=== PATIENT | female | born 1990 | race African-American/Black ===

== ENCOUNTER 2017-11-22 18:55 | Emergency (ER) | payer OTHER ==
[2017-11-22] MEDS ORDERED: METHYLPREDNISOLONE 125 MG INJ ONE (20:38)
[2017-11-22] MEDS ORDERED: DIPHENHYDRAMINE 50 MG/ML VIAL ONE (20:38)
[2017-11-22] MEDS ORDERED: NA CHLORIDE 0.9% 1,000 ML ONE (20:39)
[2017-11-22] MEDS ORDERED: FAMOTIDINE 20 MG/2 ML VIAL IV ONE (20:39)
[2017-11-22 21:04] LABS: Absolute Lymphocytes (CBC) 1.5 K/uL (0.7-4.9); Absolute Monocytes 0.7 K/uL (0.1-1.3); Absolute Neutrophil 12.4 K/uL (1.8-8.0); Basophils % 0.4 % (0-1.3); Eosinophils % 1.2 % (0-4.4); Hematocrit 37.2 % (36.0-45.0); MCH 28.5 pg (27.0-35.0); MCV 86.3 fL (80-100); MPV 9.1 fL (7.6-11.3); Monocytes % 4.7 % (3.3-12.3); RBC Red Blood Cell Count 4.31 M/uL (3.86-4.86)
[2017-11-22 21:14] LABS: Protime INR 1.08
[2017-11-22 21:18] LABS: Bicarbonate 26 mEq/L (21-31); Glucose Level 108 mg/dL (65-120); Lipase 13 U/L (22-51); Potassium 3.9 mEq/L (3.6-5.0); Sodium Level 138 mEq/L (135-145)
[2017-11-22 21:24] LABS: ALT/SGPT 15 IU/L (10-60); AST/SGOT 18 IU/L (10-42); Alkaline Phosphatase 67 IU/L (42-121); BUN Blood Urea Nitrogen 8 mg/dL (6-20); Bilirubin Direct 0.1 mg/dL (0-0.2); Bilirubin Total 0.4 mg/dL (0.3-1.2); Creatine Phosphokinase 99 IU/L (22-269); Magnesium 1.8 mg/dL (1.8-2.5); Protein, Total 7.7 g/dL (6.0-8.3)
[2017-11-22 21:26] LABS: CKMB Creatine Kinase MB 1.3 ng/ml (0.3-4.0)
[2017-11-22 21:47] LABS: Urine Blood NEGATIVE (NEG); Urine Glucose NEGATIVE (NEG); Urine Protein NEGATIVE (NEG); Urine pH 6.5 (5.0-7.0)
--- NOTE | 2017-11-22 22:04 | RAD REPORT ---
EXAM DESCRIPTION: CT - Chest For Pe Angio - 11/22/2017 9:42 pm CLINICAL HISTORY: Chest pain, cough and shortness of breath COMPARISON: None. TECHNIQUE: Dynamically enhanced axial 3 mm thick images of the chest were obtained during administra tion of <100> mL Isovue 370 IV contrast. Coronal and oblique reconstruction images were generated and reviewed. Exam utilizes a protocol for optimal evaluation of pulmonary arterial tree. All CT scans are performed using dose optimization technique as appropriate and may include automated exposure control or mA/KV adjustment according to patient size. FINDINGS: A pulmonary embolus is not seen. A thoracic aortic aneurysm is not noted. A pleural effusion is not seen. A pericardial effusion is not seen. A lung consolidation is not present. Inferior slices demonstrate soft tissue structure within the right para-aortic region of the upper ab domen IMPRESSION: Negative for a pulmonary embolism. Inferior slices demonstrate soft tissue structure within the right periaortic region of the upper abd omen. This is incompletely evaluated on this exam. Most likely this represents normal diaphragmatic c emil. However as lymphadenopathy can have this appearance it is recommended that the patient have a CT abdomen to fully evaluate this.
--- NOTE | 2017-11-22 23:35 | ER ---
Nurse's Notes [facility] Name: Marya Sanchez Age: 27 yrs Sex: Female : 1990 Arrival Date: 11/22/2017 Time: 18:55 Bed 30 Private MD: Diagnosis: Dyspnea;Obesity, unspecified;Cystitis;Chest pain, unspecified;Elevated white blood cell count Presentation: 11/22 19:27 Presenting complaint: Patient states: Cough for 1 week and chest pain for 2 days. Seen aj at urgent care today and referred for lab and xray, then sent to ER after no cause found. 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 Transition of care: patient was not received from another setting of care. Onset of symptoms was November 15, 2017. Initial Sepsis Screen: Does the patient meet any 2 criteria? No. Patient's initial sepsis screen is negative. Does the patient have a suspected source of infection? No. Patient's initial sepsis screen is negative. Care prior to arrival: None. 19:27 Method Of Arrival: Ambulatory aj 19:27 Acuity: JUAN 4 aj Triage Assessment: 19:30 General: Appears in no apparent distress. uncomfortable, Behavior is calm, cooperative, aj appropriate for age. Pain: Complains of pain in left scapular area, right scapular area, left subscapular area, right subscapular area and thoracic area Pain currently is 8 out of 10 on a pain scale. Neuro: Level of Consciousness is awake, alert, obeys commands, Oriented to person, place, time, situation. Respiratory: Reports shortness of breath cough that is pain with cough Airway is patent Respiratory effort is even, unlabored, Respiratory pattern is regular, symmetrical, Onset: The symptoms/episode began/occurred gradually, the patient has mild shortness of breath. Derm: Skin is intact, is healthy with good turgor, Skin is pink, warm \T\ dry. normal. 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 - Social history:: Smoking status: Patient uses tobacco products, smokes one-half pack cigarettes per day. - Family history:: not pertinent. Screenin:05 Abuse screen: Denies threats or abuse. Denies injuries from another. Nutritional kr2 screening: No deficits noted. Tuberculosis screening: No symptoms or risk factors identified. Fall Risk None identified. Assessment: 20:40 Cardiovascular: Rhythm is sinus rhythm. Respiratory: Reports shortness of breath at kr2 rest cough that is non-productive, persistent Airway is patent Respiratory effort is even, unlabored, Respiratory pattern is regular, symmetrical, Breath sounds are clear bilaterally. 20:40 General: Appears in no apparent distress. comfortable, well groomed, well developed, kr2 well nourished, Behavior is calm, cooperative, appropriate for age. Pain: Complains of pain in chest Pain radiates to left scapular area, right scapular area and thoracic area Pain currently is 7 out of 10 on a pain scale. Quality of pain is described as sharp, stabbing, Is continuous, Alleviated by nothing. Aggravated by increased activity. Neuro: Level of Consciousness is awake, alert, obeys commands, Oriented to person, place, time, situation. GI: Abdomen is flat, non-distended. : Urine is clear. EENT: Nares with drainage noted bilaterally Oral mucosa is moist. Derm: Skin is intact, is healthy with good turgor, Skin is pink, warm \T\ dry. Musculoskeletal: Circulation, motion, and sensation intact. 21:45 Reassessment: Patient appears in no apparent distress at this time. Patient and/or kr2 family updated on plan of care and expected duration. Pain level reassessed. Patient is alert, oriented x 3, equal unlabored respirations, skin warm/dry/pink. 22:30 Reassessment: Patient appears in no apparent distress at this time. Patient and/or kr2 family updated on plan of care and expected duration. Pain level reassessed. Patient is alert, oriented x 3, equal unlabored respirations, skin warm/dry/pink. Patient states feeling better. 23:30 Reassessment: Patient appears in no apparent distress at this time. Patient and/or kr2 family updated on plan of care and expected duration. Pain level reassessed. Patient is alert, oriented x 3, equal unlabored respirations, skin warm/dry/pink. Patient denies pain at this time. Patient states feeling better. Patient states symptoms have improved. 11/23 00:39 Reassessment: Patient appears in no apparent distress at this time. Rocephin given IM kr2 due to IV not flushing. Vital Signs: 11/22 19:30 BP 114 / 91; Pulse 95; Resp 22; Temp 98.6; Pulse Ox 100% on R/A; Weight 113.4 kg; aj Height 5 ft. 3 in. (160.02 cm); Pain 8/10; 21:00 BP 118 / 78; Pulse 88; Resp 17; Pulse Ox 100% on R/A; kr2 22:00 BP 115 / 78; Pulse 84; Resp 17; Pulse Ox 100% on R/A; kr2 23:00 BP 112 / 62; Pulse 80; Resp 18; Pulse Ox 100% on R/A; kr2 11/23 00:00 BP 115 / 88; Pulse 95; Resp 18; Pulse Ox 100% on R/A; kr2 11/22 19:30 Body Mass Index 44.29 (113.40 kg, 160.02 cm) ED Course: 11/22 18:55 Patient arrived in ED. as 19:29 Triage completed. aj 19:30 Arm band placed on left wrist. Patient placed in an exam room. aj 19:46 Ronaldo Seth MD is Attending Physician. [facility] 20:16 Fina Mittal, YOBANI is Primary Nurse. kr2 20:45 Patient has correct armband on for positive identification. Bed in low position. Call kr2 light in reach. Side rails up X2. esthetician on. Pulse ox on. NIBP on. Door closed. Warm blanket given. Head of bed elevated. 20:50 Radiology exam delayed due to lab results not completed at this time. (BUN/Creatinine). vm2 20:50 Inserted saline lock: 22 gauge in left antecubital area, using aseptic technique. Blood kr2 collected. 21:18 Urine collected: clean catch specimen, cloudy, kathleen colored. kr2 21:[address] via wheelchair. jg1 21:43 CT Chest For PE Angio In Process Unspecified. EDMS 21:45 CT completed. Patient moved back from CT. jg1 22:[address] via wheelchair. jg1 23:08 CT Abd/Pelvis - Without Cont In Process Unspecified. EDMS 11/23 00:39 No provider procedures requiring assistance completed. IV discontinued, intact, kr2 bleeding controlled, No redness/swelling at site. Pressure dressing applied. Administered Medications: 11/22 21:03 Drug: NS 0.9% 1000 ml Route: IV; Rate: 1 bolus; Site: left antecubital; kr2 22:00 Follow up: Response: No adverse reaction; IV Status: Completed infusion kr2 21:03 Drug: Pepcid 40 mg Route: IVP; Site: left antecubital; kr2 11/23 00:38 Follow up: Response: No adverse reaction 2 11/22 21:03 Drug: Benadryl 50 mg Route: IVP; Site: left antecubital; kr2 11/23 00:37 Follow up: Response: No adverse reaction [facility] 11/22 21:04 Drug: SOLU-Medrol 125 mg Route: IVP; Site: left antecubital; kr2 11/23 00:38 Follow up: Response: No adverse reaction [facility] 11/22 23:36 CANCELLED (Duplicate Order): Zithromax 500 mg PO once [facility] 11/23 00:15 Drug: Rocephin (cefTRIAXone) 1 grams Route: IM; Site: left gluteus; kr2 00:37 Follow up: Response: No adverse reaction 2 00:19 CANCELLED (route change): Rocephin - (cefTRIAXone) 1 grams IVPB once over 30 mins; (mix kr2 in 50 mL NS) 00:19 Drug: LevOfloxacin 500 mg Route: PO; kr2 00:37 Follow up: Response: Medication administered at discharge. kr2 Outcome: 11/22 23:35 Discharge ordered by . [facility] 11/23 00:40 Discharged to home ambulatory. kr2 Condition: good Discharge instructions given to patient, Instructed on discharge instructions, follow up and referral plans. medication usage, Demonstrated understanding of instructions, follow-up care, medications, Prescriptions given X 3. 00:40 Patient left the ED. kr2 Addendum: 11/26/2017 07:34 Addendum: Culture Results: Positive urine culture. No further action required. Bacteria i w sensitive to prescribed antibiotic. Signatures: Dispatcher [employer] EDMS Paola Philip RN RN aj Anderson, Corey, MD MD cha Garcia, Jessica jg1 Martinez, Amelia as Williams, Irene, RN RN [facility]midt, Meghan 2 Fina Mittal RN RN kr2 Corrections: (The following items were deleted from the chart) 11/22 22:57 20:40 Respiratory: Airway is patent Respiratory effort is even, unlabored, Respiratory kr2 pattern is regular, symmetrical, Breath sounds are clear bilaterally. kr2 22:59 20:40 Cardiovascular: Rhythm is sinus rhythm kr2 kr2
--- NOTE | 2017-11-22 23:36 | EDPHYS ---
Physician Documentation [facility] Name: Marya Sanchez Age: 27 yrs Sex: Female : 1990 Arrival Date: 11/22/2017 Time: 18:55 Bed 30 Private MD: ED Physician Ronaldo Seth HPI: 11/22 20:26 This 27 yrs old Black Female presents to ER via Ambulatory with complaints of Shortness rocky Of Breath, Chest Pain. 20:26 The patient has shortness of breath at rest. Onset: The symptoms/episode began/occurred rocky 2 day(s) ago. Duration: The symptoms are continuous, and are unchanged since they started. The patient's shortness of breath has no apparent modifying factors. Associated signs and symptoms: The patient has no apparent associated signs or symptoms. Severity of symptoms: At their worst the symptoms were mild in the emergency department the symptoms are unchanged. The patient has not experienced similar symptoms in the past. 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 - Social history:: Smoking status: Patient uses tobacco products, smokes one-half pack cigarettes per day. - Family history:: not pertinent. ROS: 20:26 Constitutional: Negative for fever, chills, and weight loss, Eyes: Negative for injury, rocky pain, redness, and discharge, ENT: Negative for injury, pain, and discharge, Neck: Negative for injury, pain, and swelling, Cardiovascular: Negative for chest pain, palpitations, and edema, Abdomen/GI: Negative for abdominal pain, nausea, vomiting, diarrhea, and constipation, Back: Negative for injury and pain, : Negative for injury, bleeding, discharge, and swelling, MS/Extremity: Negative for injury and deformity, Skin: Negative for injury, rash, and discoloration, Neuro: Negative for headache, weakness, numbness, tingling, and seizure, Psych: Negative for depression, anxiety, suicide ideation, homicidal ideation, and hallucinations, Allergy/Immunology: Negative for hives, rash, and allergies, Endocrine: Negative for neck swelling, polydipsia, polyuria, polyphagia, and marked weight changes, Hematologic/Lymphatic: Negative for swollen nodes, abnormal bleeding, and unusual bruising. 20:26 Respiratory: Positive for shortness of breath, at rest. Exam: 20:26 Constitutional: This is a well developed, well nourished patient who is awake, alert, rocky and in no acute distress. Head/Face: Normocephalic, atraumatic. Eyes: Pupils equal round and reactive to light, extra-ocular motions intact. Lids and lashes normal. Conjunctiva and sclera are non-icteric and not injected. Cornea within normal limits. Periorbital areas with no swelling, redness, or edema. ENT: Nares patent. No nasal discharge, no septal abnormalities noted. Tympanic membranes are normal and external auditory canals are clear. Oropharynx with no redness, swelling, or masses, exudates, or evidence of obstruction, uvula midline. Mucous membranes moist. Neck: Trachea midline, no thyromegaly or masses palpated, and no cervical lymphadenopathy. Supple, full range of motion without nuchal rigidity, or vertebral point tenderness. No Meningismus. Chest/axilla: Normal chest wall appearance and motion. Nontender with no deformity. No lesions are appreciated. Cardiovascular: Regular rate and rhythm with a normal S1 and S2. No gallops, murmurs, or rubs. Normal PMI, no JVD. No pulse deficits. Respiratory: Lungs have equal breath sounds bilaterally, clear to auscultation and percussion. No rales, rhonchi or wheezes noted. No increased work of breathing, no retractions or nasal flaring. Abdomen/GI: Soft, non-tender, with normal bowel sounds. No distension or tympany. No guarding or rebound. No evidence of tenderness throughout. Back: No spinal tenderness. No costovertebral tenderness. Full range of motion. Skin: Warm, dry with normal turgor. Normal color with no rashes, no lesions, and no evidence of cellulitis. MS/ Extremity: Pulses equal, no cyanosis. Neurovascular intact. Full, normal range of motion. Neuro: Awake and alert, GCS 15, oriented to person, place, time, and situation. Cranial nerves II-XII grossly intact. Motor strength 5/5 in all extremities. Sensory grossly intact. Cerebellar exam normal. Normal gait. Psych: Awake, alert, with orientation to person, place and time. Behavior, mood, and affect are within normal limits. 20:26 Musculoskeletal/extremity: ROM: no acute changes, intact in all extremities, full active range of motion, full passive range of motion, Circulation is intact in all extremities. Sensation intact. Compartment Syndrome exam of affected extremity: is normal. Joints: All joints appear normal with full range of motion. DVT Exam: No signs of deep vein thrombosis. no pain, no swelling, no tenderness, negative Homans' sign noted on exam, no appreciated bluish discoloration, no erythema, no increased warmth, Calves: are non-tender, have equal circumference. Vital Signs: 19:30 BP 114 / 91; Pulse 95; Resp 22; Temp 98.6; Pulse Ox 100% on R/A; Weight 113.4 kg; aj Height 5 ft. 3 in. (160.02 cm); Pain 8/10; 21:00 BP 118 / 78; Pulse 88; Resp 17; Pulse Ox 100% on R/A; kr2 22:00 BP 115 / 78; Pulse 84; Resp 17; Pulse Ox 100% on R/A; kr2 23:00 BP 112 / 62; Pulse 80; Resp 18; Pulse Ox 100% on R/A; kr2 11/23 00:00 BP 115 / 88; Pulse 95; Resp 18; Pulse Ox 100% on R/A; kr2 11/22 19:30 Body Mass Index 44.29 (113.40 kg, 160.02 cm) aj MDM: 11/22 19:46 Patient medically screened. [facility] 20:26 Data reviewed: vital signs, nurses notes, lab test result(s), EKG, radiologic studies, [facility] CT scan, plain films. 11/22 20:25 Order name: Basic Metabolic Panel; Complete Time: 22:49 [facility] 11/22 20:25 Order name: BNP; Complete Time: 22:49 [facility] 11/22 20:25 Order name: CBC with Diff; Complete Time: 22:49 [facility] 11/22 20:25 Order name: Ckmb; Complete Time: 22:49 [facility] 11/22 20:25 Order name: CPK; Complete Time: 22:49 [facility] 11/22 20:25 Order name: LFT's; Complete Time: 22:49 [facility] 11/22 20:25 Order name: Magnesium; Complete Time: 22:49 [facility] 11/22 20:25 Order name: PT-INR; Complete Time: 22:49 [facility] 11/22 20:25 Order name: Ptt, Activated; Complete Time: 22:49 [facility] 11/22 20:25 Order name: Troponin (emerg Dept Use Only); Complete Time: 22:49 [facility] 11/22 20:25 Order name: Lipase; Complete Time: 22:49 [facility] 11/22 21:29 Order name: Urine Dipstick--Ancillary (enter results); Complete Time: 22:49 em 11/22 21:29 Order name: Urine --Ancillary (enter results); Complete Time: 22:49 [facility] 11/22 22:52 Order name: Urine Culture [facility] 11/22 20:25 Order name: Urine Test (obtain specimen); Complete Time: 21:26 [facility] 11/22 20:25 Order name: EKG; Complete Time: 20:26 [facility] 11/22 20:25 Order name: Cardiac monitoring; Complete Time: 21:02 [facility] 11/22 20:25 Order name: EKG - Nurse/Tech; Complete Time: 21:02 [facility] 11/22 20:25 Order name: IV Saline Lock; Complete Time: 21:02 [facility] 11/22 20:25 Order name: CT Chest For PE Angio; Complete Time: 22:49 [facility] 11/22 22:51 Order name: CT Abd/Pelvis - Without Cont 11/22 20:25 Order name: Labs collected and sent; Complete Time: 21:02 [facility] 11/22 20:25 Order name: O2 Per Protocol; Complete Time: 21:02 [facility] 11/22 20:25 Order name: O2 Sat Monitoring; Complete Time: 21:02 [facility] 11/22 20:25 Order name: Urine Dipstick-Ancillary (obtain specimen); Complete Time: 21:27 [facility] Administered Medications: 21:03 Drug: NS 0.9% 1000 ml Route: IV; Rate: 1 bolus; Site: left antecubital; kr2 22:00 Follow up: Response: No adverse reaction; IV Status: Completed infusion :03 Drug: Pepcid 40 mg Route: IVP; Site: left antecubital; kr2 11/23 00:38 Follow up: Response: No adverse reaction 2 11/22 21:03 Drug: Benadryl 50 mg Route: IVP; Site: left antecubital; kr2 11/23 00:37 Follow up: Response: No adverse reaction kr2 11/22 21:04 Drug: SOLU-Medrol 125 mg Route: IVP; Site: left antecubital; kr2 11/23 00:38 Follow up: Response: No adverse reaction 2 11/22 23:36 CANCELLED (Duplicate Order): Zithromax 500 mg PO once [facility] 11/23 00:15 Drug: Rocephin (cefTRIAXone) 1 grams Route: IM; Site: left gluteus; kr2 00:37 Follow up: Response: No adverse reaction kr2 00:19 CANCELLED (route change): Rocephin - (cefTRIAXone) 1 grams IVPB once over 30 mins; (mix kr2 in 50 mL NS) 00:19 Drug: LevOfloxacin 500 mg Route: PO; kr2 00:37 Follow up: Response: Medication administered at discharge. kr2 Disposition: 11/22/17 23:35 Discharged to Home. Impression: Dyspnea, Obesity, unspecified, Cystitis, Chest pain, unspecified, Elevated white blood cell count. - Condition is Stable. - Discharge Instructions: Nonspecific Chest Pain, Dysuria, Obesity, Nonspecific Chest Pain, [id number], Aspirin and Your Heart, Obesity, [id number]. - Prescriptions for Pepcid 20 mg Oral Tablet - take 1 tablet by ORAL route every 12 hours for 10 days; 20 tablet. Levaquin 500 mg Oral Tablet - take 1 tablet by ORAL route once daily for 6 days; 6 tablet. Motrin IB 200 mg Oral Tablet - take 2 tablet by ORAL route every 6 hours As needed as needed with food; 30 tablet. - Medication Reconciliation Form, Thank You Letter, Antibiotic Education, Prescription Opioid Use, Work release form form. - Follow up: Private Physician; When: 2 - 3 days; Reason: Recheck today's complaints, Continuance of care, Re-evaluation by your physician. - Problem is new. - Symptoms have improved. Signatures: Dispatcher [employer] Paola Tadeo, Ronaldo Deluna RN, MD MD cha Reaves, Karey RN RN kr2 Corrections: (The following items were deleted from the chart) 11/22 20:58 20:26 Chest Single View+[email or web address].[email or web address] ordered. EDMS EDMS 23:36 23:34 Zithromax 500 mg PO once ordered. rocky rocky 11/23 00:19 11/22 22:52 Rocephin - (cefTRIAXone) 1 grams IVPB once over 30 mins; (mix in 50 mL NS) kr2 ordered. rocky
[2017-11-22] MEDS ORDERED: CEFTRIAXONE/SWI 1gm 1 GM/10 ML SYR ONE (23:52)
[2017-11-22] MEDS ORDERED: levoFLOXacin 500 MG TAB ONE (23:52)
[2017-11-22] MEDS ORDERED: CEFTRIAXONE 1000 MG/VIAL ONE (23:59)
[2017-11-22] MEDS ORDERED: LIDOCAINE 1% MPF 5 ML VIAL ONE (23:59)
--- NOTE | 2017-11-23 08:43 | RAD REPORT ---
EXAM DESCRIPTION: CT - Abdomen Pelvis Wo Contrast - 11/23/2017 6:43 am CLINICAL HISTORY: Abdominal pain. Cough, chest pain COMPARISON: CT chest 11/22/2017 TECHNIQUE: CT imaging of the abdomen and pelvis was performed without contrast. Solid organ, bowel a nd vascular assessment is limited due to lack of IV and oral contrast. All CT scans are performed using dose optimization technique as appropriate and may include automated exposure control or mA/KV adjustment according to patient size. FINDINGS: The lower lung adkins are clear. The liver, spleen, pancreas, adrenal glands and kidneys are within normal limits for a limited non-co ntrast examination.Excretory contrast noted in the system from CT recently performed. No bowel obstruction, free air, free fluid or abscess. The appendix is normal. The osseous structures are within normal limits. IMPRESSION: No acute intra-abdominal or pelvic findings. A limited non-contrast examination was performed as detailed.
--- NOTE | 2017-11-23 15:42 | EKG ---
Test Date: 2017-11-22 Test Time: 20:54:16 Assistant Softball Coach: CONNER MEASUREMENT RESULTS: Intervals: Rate: 78 [place]: 156 QRSD: 80 QT: 386 QTc: 440 [place]: P: 60 [place]: 156 QRS: 74 T: 44 INTERPRETIVE STATEMENTS: Normal sinus rhythm Normal ECG Compared to ECG 06/19/2014 16:54:39 Sinus arrhythmia no longer present Electronically Signed On 11-23-17 15:37:58 CDT by Chris Moreno
== END 2017-11-23 00:40 | disposition home or self-care (01) ==
LOC: ER 18:55
DX: R07.9 Chest pain, unspecified (principal); N30.90 Cystitis, unspecified without hematuria; D72.829 Elevated white blood cell count, unspecified; E66.9 Obesity, unspecified; I10 Essential (primary) hypertension; F17.210 Nicotine dependence, cigarettes, uncomplicated; Z91.013 Allergy to seafood
CPT/HCPCS: 36415; 71275; 74176; 80048; 80076; 81003; 81025; 82550; 82553; 83690; 83735; 83880; 84484; 85025; 85610; 85730; 87077; 87086; 87088; 87186; 93005; 96361; 96372; 96374; 96375; 99285; J0696; J2930; J7030; Q9967

== ENCOUNTER 2019-09-03 08:28 | Emergency (ER) | payer OTHER, SELFPAY ==
--- OUTSIDE RECORDS SUMMARY | 2019-09-03 08:30 | XMS REPORT ---
:1990 Author Organization [employer] Care Team Providers Name Role Phone Lillie Pan Provider Role Unavailable Allergies No Known Allergies Problems Problem Type Condition Code Onset Dates Condition Status Problem Hoarseness of voice R49.0 Active Problem Mass of throat 784.2 Active Problem Primary insomnia 307.42 Active Problem Insomnia, unspecified type G47.00 Active Problem Seasonal allergies 477.9 Active Problem Hives of unknown origin L50.9 Active Problem Depression with anxiety F41.8 Active Problem Seasonal allergies J30.2 Active Problem Depression with anxiety 300.4 Active Problem Hives 708.9 Active Problem History of supraventricular Z86.79 Active tachycardia Problem Asthma, unspecified asthma J45.909 Active severity, unspecified whether complicated, unspecified whether persistent Problem Anxiety F41.9 Active Problem History of pneumonia Z87.01 Active Medications No Known Medications Results No Known Results Summary Purpose [facility]
--- OUTSIDE RECORDS SUMMARY | 2019-09-03 08:30 | XMS REPORT ---
:1990 Author Organization eClinicalWorks Care Team Providers Name Role Phone Mayorga, Na Provider Role Unavailable Allergies, Adverse Reactions, Alerts Substance Reaction Event Type seafood Info Not Available Non Drug Allergy Problems Problem Type Condition Code Onset Dates [...] anxiety 300.4 Active Problem Hives 708.9 Active Assessment Acute non-recurrent maxillary J01.00 Active sinusitis Assessment Hoarseness of voice R49.0 Active Assessment Depression with anxiety F41.8 Active Assessment Mass of throat R22.1 Active Problem History of supraventricular Z86.79 Active tachycardia Problem Asthma, unspecified asthma J45.909 Active severity, unspecified whether complicated, unspecified whether persistent Assessment Seasonal allergic rhinitis due to J30.1 Active pollen Problem Anxiety F41.9 Active Problem History of pneumonia Z87.01 Active Medications Medication Code Code Instructions Start End Status Dosage System Date Date Lexapro [facility] 96041968305 10 MG Orally Mar 27, Active 1 tablet Once a day 2017 Cetirizine HCl [facility] 44380514010 10 MG Orally Active 1 tablet Once a day Estarylla [facility] [address]-71 Active not defined Flonase [facility] 62984843065 50 MCG/ACT Active 2 spray Nasally Once a in each day nostril Trazodone HCl [facility] 96903506395 50 MG Orally Inactive 1 tablet Once a day at bedtime as needed Augmentin [facility] 11791578576 875-125 MG Sept Active 1 tablet Orally every 12 07, hrs 2017 ZyrTEC [facility] 70094081329 Active not defined Montelukast [facility] 91169175055 10 MG Orally Active 1 tablet Sodium Once a day in the evening Benadryl [facility] 93810293893 25 MG Orally Active 1 tablet Allergy every 8 hrs as needed PredniSONE [facility] 07891184694 20 MG Orally Mar 27, Active 2 tablets Once a day 2017 dailyx 5 days then 1 tablet daily x 5 days Results No Known Results Summary Purpose eClinicalWorks Submission
--- OUTSIDE RECORDS SUMMARY | 2019-09-03 08:30 | XMS REPORT ---
[...] Active Problem Insomnia, unspecified type G47.00 Active Assessment Insomnia, unspecified type G47.00 Active Problem Seasonal allergies 477.9 Active Problem Hives of unknown origin L50.9 Active Problem Depression with anxiety F41.8 Active Problem Seasonal allergies J30.2 Active Problem Depression with anxiety 300.4 Active Problem Hives 708.9 Active Assessment Depression with anxiety F41.8 Active Assessment Mass of throat R22.1 Active Assessment Hives L50.9 Active Assessment Seasonal allergies J30.2 Active Problem History of supraventricular Z86.79 Active tachycardia Problem Asthma, unspecified asthma J45.909 Active severity, unspecified whether complicated, unspecified whether persistent Assessment Hoarseness of voice R49.0 Active Problem Anxiety F41.9 Active Problem History of pneumonia Z87.01 Active Medications Medication Code Code Instructions Start End Status Dosage System Date Date Estarylla [facility] [address]-70 Active not defined Montelukast [facility] 39150478864 10 MG Orally Active 1 tablet Sodium Once a day in the evening Trazodone HCl [facility] 54217911513 50 MG Orally December 19, Active 1 tablet Once a day 2018 at bedtime as needed ZyrTEC [facility] 15169983108 Active not defined Results No Known Results Summary Purpose eClinicalWorks Submission
--- OUTSIDE RECORDS SUMMARY | 2019-09-03 08:30 | XMS REPORT ---
[...] Problem Insomnia, unspecified type G47.00 Active Assessment Family history of diabetes Z83.3 Active mellitus Problem Seasonal allergies 477.9 Active Assessment Nicotine abuse Z72.0 Active Assessment Depression with anxiety F41.8 Active Problem Hives of unknown origin L50.9 Active Problem Depression with anxiety F41.8 Active Problem Seasonal allergies J30.2 Active Problem Depression with anxiety 300.4 Active Problem Hives 708.9 Active Assessment Seasonal allergic rhinitis due to J30.1 Active pollen Assessment Acute non-recurrent maxillary J01.00 Active sinusitis Assessment Screening for diabetes mellitus Z13.1 Active Assessment Medication side effect T88.7XXA Active Problem History of supraventricular Z86.79 Active tachycardia Problem Asthma, unspecified asthma J45.909 Active severity, unspecified whether complicated, unspecified whether persistent Assessment Encounter for general adult Z00.01 Active medical examination with abnormal findings Problem Anxiety F41.9 Active Problem History of pneumonia Z87.01 Active Medications Medication Code Code Instructions Start End Status Dosage System Date Date Trazodone HCl [facility] 23430641347 50 MG Orally Inactive 1 tablet Once a day at bedtime as needed Cetirizine HCl ND 27092423594 10 MG Orally Active 1 tablet Once a day ZyrTEC [facility] 62517011453 Active not defined Wellbutrin SR ND 85038728666 150 MG Orally Mar 10, Active as twice a day 2018 directed Flonase ND 99169837497 50 MCG/ACT Active 2 spray in Nasally Once a each day nostril PredniSONE ND 92771874775 20 MG Orally Mar 27, Active 2 tablets Once a day 2018 dailyx 5 days then 1 tablet daily x [address] [facility] 79108667542 10 MG Orally Inactive 1 tablet Once a day Estarylla [facility] [address]-44 Active not defined Montelukast [facility] 23523249285 10 MG Orally Active 1 tablet Sodium Once a day in the evening Benadryl [facility] 17909955377 25 MG Orally Active 1 tablet Allergy every 8 hrs as needed Cefdinir [facility] 72021222501 300 MG Orally Apr 09Mar Active as twice a day 2017 Results No Known Results Summary Purpose eClinicalWorks Submission
--- OUTSIDE RECORDS SUMMARY | 2019-09-03 08:30 | XMS REPORT ---
:1990 [facility] Address [address] [place] [address] Dr. Awan [address] [place] [address] Care Team Providers Name Role Phone Unavailable Unavailable Unavailable Problems This patient has no known problems. Allergies, Adverse Reactions, Alerts This patient has no known allergies or adverse reactions. Medications This patient has no known medications.
--- OUTSIDE RECORDS SUMMARY | 2019-09-03 08:30 | XMS REPORT ---
:1990 Author Organization eClinicalWorks Care Team Providers Name Role Phone Lillie Pan Provider Role Unavailable Allergies, Adverse Reactions, Alerts [...] unspecified whether persistent Problem Anxiety F41.9 Active Assessment Hives of unknown origin L50.9 Active Problem History of pneumonia Z87.01 Active Medications Medication Code Code Instructions Start End Status Dosage System Date Date Trazodone HCl [facility] 22443628806 50 MG Orally December 19, Active 1 tablet Once a day 2017 at bedtime as needed Estarylla [facility] [address]-26 Active not defined Montelukast ND 93358189276 10 MG Orally Active 1 tablet Sodium Once a day in the evening Benadryl [facility] 58133052642 25 MG Orally Active 1 tablet Allergy every 8 hrs as needed ZyrTEC [facility] 02900341525 Active not defined Results No Known Results Summary Purpose eClinicalWorks Submission
--- OUTSIDE RECORDS SUMMARY | 2019-09-03 08:31 | XMS REPORT | Encounter Summary ---
:1990 Author Care Team Providers Name Role Phone Alexis Vishnu Publications Distribution Clerk [phone] Amalia Florentino Publications Distribution Clerk [phone] Reason for Visit Well woman exam Instructions 1. Gynecologic examination pap test, thinprep, cervical urinalysis, dipstick 2. Venereal disease screening CT + NG DNA, PCR, cervical 3. test negative test, urine 4. Contraception education Discussion Note Pap, GC/CT done. Encouraged SBE. Counseled regarding prevention of STD's and discussed contraceptive options. Advised avoidance of tobacco, alcohol, and drugs. Encouraged good nutrition, regular exercise, and ideal body weight. Patient educational handouts: No information available. Plan of Care Reminders Provider Appointments Well Woman Amalia Tamara Exam 05/04/2020 [facility] 9:00AM Lab CT + NG DNA, [place] PCR, Cervical 05/02/2019 [facility] (Lab) Pap Test, [place] Thinprep, Cervical 05/02/2019 [facility] (Lab) Urinalysis, In-House Results Dipstick 05/02/2019 In-House Results Test, Urine 05/02/2019 Referral None recorded. Procedures None recorded. Surgeries None recorded. Imaging None recorded. Medications Name Start Date Fat Burner one daily multivitamin one daily Medications Administered None recorded. Vitals Height Weight BMI Blood Pressure 5 ft 3 in 270.6 lbs 47.9 kg/m2 132/82 mm[Hg] Lab Results Date Name Specimen Result Interpretation Description Value Range Status Address Test negative In-House Test, Urine Results: For Internal Use Only Urinalysis, Leukocytes Negative In-House Dipstick Results: For Internal Use Only Nitrite negative In-House Results: For Internal Use Only Urobilinogen .2 In-House Results: For Internal Use Only Protein Negative In-House Results: For Internal Use Only Ph 5.5 In-House Results: For Internal Use Only Blood Negative In-House Results: For Internal Use Only Specific 1.030 In-House [place] Results: For Internal Use Only Ketone Negative In-House Results: For Internal Use Only Bilirubin Negative In-House Results: For Internal Use Only Glucose Negative In-House Results: For Internal Use Only Appearance Clear In-House Results: For Internal Use Only Color Yellow In-House Results: For Internal Use Only Allergies Code Code System Name Reaction Severity Status Onset NKDA Problems Name Status Onset Date Source Atypical Squamous Cells of Undetermined Active 10/22/2013 Significance on Cervical Papanicolaou Smear HPV - Human Papillomavirus Test Positive Active 10/22/2013 Anxiety Disorder Active 09/11/2015 Influenza Active 10/19/2015 Allergic Reaction Active 11/03/2015 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 Gastroesophageal Reflux Disease Active 01/01/2016 Urticaria Active 02/13/2017 IUD Contraception Active 02/13/2017 Candidiasis of Skin Active 10/04/2017 Removal of Intrauterine Device Active 10/04/2017 Candidiasis of Vagina Active 04/05/2018 Contraception Education Active 04/05/2018 Bacterial Disease Screening Active 04/05/2018 Gynecologic Examination Active 05/02/2019 Test Negative Active 05/02/2019 Venereal Disease Screening Active 05/02/2019 Bacterial Vaginosis Active Insomnia Active Supraventricular Tachycardia Active External Acute Cervicitis Active Cervical Intraepithelial Neoplasia Grade Active 1 Female Stress Incontinence Active Arrested Active Phase of Labor Active External Acute Sciatica Active Edematous Skin Active Post-micturition Incontinence Active Gestation Period, 39 Weeks Active External Heart Finding Active External Procedures Date Name Performed by 09/24/2014 Heart Surgery Information not available Vaccine List None recorded. Social History Tobacco Smoking Status Heavy Tobacco Smoker (1/2 PPD) Past Encounters 05/02/2019 Gynecologic Examination; Venereal Disease Screening; Test Negative; Contraception Education Amalia Good, [facility]: [address] [place] [address] [address], [place] [address] , Ph. [phone] History of Present Illness Note: Well woman visit. She denies breast, bowel, or bladder concerns. She denies any vaginal irritations or discharge. Menses is regular without any concerns. She desires chlamydia and gonorrhea testing today with pap smear test. She declines control method. Coping with anxiety, not on meds. Current smoker. Review of Systems VP [employer]ET[employer] Reported By: Patient Constitutional: Constitutional: no fatigue, no fever, weight gain (15lbs) Skin: Skin: no abnormal moles, no rashes Eyes: Eyes: no irritation, no vision changes ENMT: ENMT: no hearing loss, no ear pain, no nose/sinus problems, no sore throat, no snoring, no dry mouth, no mouth ulcers Respiratory: Respiratory: no dyspnea / shortness of breath, no cough, no sputum production, no hemoptysis, no wheezing Cardiovascular: Cardiovascular: no chest pain, no palpitations, no orthopnea Gastrointestinal: Gastrointestinal: no heartburn, no dysphagia, no nausea, no vomiting, no abdominal pain, no bowel movement changes, no diarrhea, no constipation, no rectal bleeding Genitourinary: Genitourinary: no hematuria, no abnormal bleeding, no flank pain, no trouble urinating, no incontinence, no rash, no lesion, no discharge, no vaginal odor, no vaginal itching Endocrine: Menstrual: no menstrual problems, no PMDD symptoms. Menopausal: no menopausal symptoms. Sexual: no sexual problems Musculoskeletal: Musculoskeletal: no muscle aches, no muscle weakness, no arthralgias/joint pain, no back pain Neurological: Neurologic: no headaches, no dizziness, no LOC, no weakness, no numbness, no seizures Psychological: Psych: no depression, no alcoholism, sleep disturbances Physical Exam Pelvic, Annual Director [employer] Reported By: Patient Technical Healthcare Consultant: Technical Healthcare Consultant: present Female Genitalia: Vulva: no masses, no atrophy, no lesions. Bladder/Urethra: normal meatus, no urethral discharge, no urethral mass, bladder non distended. Vagina no tenderness, no erythema, no abnormal vaginal discharge, no vesicle(s) or ulcers, no cystocele, no rectocele. Cervix: grossly normal, no discharge, no cervical motion tenderness, sample taken for a Pap smear. Uterus: non-tender, no uterine prolapse; limited d/t body habitus. Adnexa/Parametria: no parametrial tenderness, no adnexal tenderness; limited d/t body habitus Constitutional: General Appearance: morbidly obese Psychiatric: Orientation: to time, to place, to person. Mood and Affect: active and alert, normal mood, normal affect Skin: Appearance: no rashes, no lesions Neck: Neck: trachea midline, no masses Lungs: Respiratory Effort: no intercostal retractions, no accessory muscle usage. Auscultation: clear to auscultation, no wheezing, no rales/crackles, no rhonchi Cardiovascular: Auscultation: RRR, no murmur Abdomen: Auscultation/Inspection/Palpation: non-distended, no tenderness Breast: Inspection/Palpation: no skin changes, no abnormal secretions, nipple appearance normal, no tenderness, no distinct masses Rectal Exam: Rectum: normal perianal skin, no hemorrhoids
--- OUTSIDE RECORDS SUMMARY | 2019-09-03 08:31 | XMS REPORT | Continuity of Care Document ---
:1990 Author Organization [facility] Address [address] [place] [address] Phone Unavailable Care Team Providers Name Role Phone ISAIAH MENDEZ DO Primary Care Physician Insurance Providers Guarantor Marya Sanchez Andre Address [address] [place] [address] Email [email or web address] Payer Self Pay Insurance Subscriber's Name Marya Sanchez Relationship Self / Same As Patient Group Number NA Group Name NA Advance Directives Directive Response Recorded Date/Time Advance Directive on File No 09/04/18 10:21am Patient/Family Given Education Material R/T Y - 09/04/18...[place] 09/04/18 10: 21am Directives? Chief Complaint and Reason for Visit Chief Complaint Extremity Pain/Injury Reason for Visit [id number] Problems Medical Problem Onset Date Status 39 weeks gestation of Unknown Acute Arrest of dilation, delivered, current hospitalization Unknown Acute Fall Unknown Acute Non-reassuring heart rate or rhythm affecting management of Unknown Acute mother Rib pain on right side Unknown Acute SVT (supraventricular tachycardia) Unknown Acute Shoulder pain Unknown Acute Past Problems Medical Problem Onset Date Status Abscess of heel, right Unknown Acute Medications Current Home Medications Medication Dose Units Route Directions Days Qty Instructions Start Date Acetamin/Codeine 1 Tab ORAL Every 6 Hours 15 Tablet 09/04/18 300/30 Mg * As Needed as (Tylenol With needed for Codeine #3 300/30 Mg *) 300/30 Mg Tab Acetaminophen W/ 1-2 Tabs ORAL Every 6 Hours 30 Tablet 03/18/16 Codeine #3 * As Needed for (Tylenol Codeine Pain #3 300MG/30MG *) 1 Tab Tab Esomeprazole Mag 20 Mg ORAL Daily * (Nexium 20 Mg *) 20 Mg Cap Ibuprofen (Motrin 1 Tab ORAL Every 6 Hours 30 Tablet 03/18/16 *) 800 Mg Tab As Needed as needed for Pain Ondansetron Hcl 4 Mg ORAL Twice A Day (Zofran *) 4 Mg Tab Vit W/ 1 Tab ORAL Daily 90 Tablet Ferrous Fumara ( One Daily) Tab Trimethoprim/Sulf 1 Tab ORAL Twice A Day 10 Days 20 Tablet 09/04/18 amethoxazole for Infection (Bactrim Ds *) 800/160 Mg Tab Past Home Medications Medication Directions Ordered Status Zolpidem Tartrate (Ambien *) 5 At Bedtime As Needed as needed Discontinued Mg Tab, 1 Tab Oral for Sleep Social History Social History Problem Response Recorded Date/Time Onset Date Status Hx Physical Abuse No 09/04/2018 10:21am Not Applicable Not Applicable Smoking Status Start Date Stop Date Current every day smoker Hospital Discharge Instructions No hospital discharge instruction information available. Plan of Care Discharge Date 09/04/18 11:15am Instructions/Education Provided Skin Abscess, Vglu-cl-Jati Prescriptions See Medication Section Referrals ISAIAH MENDEZ DO Address: [address] [place], [place] [address] Additional Instructions/Education bactrim ds one po bid x 10 days tylenol #3 for pain as needed #15 ibuprofen monitor for worsening of infection f/u with Dr. Cooley return for new or worsening of symptoms Functional Status No functional status information available. Allergies, Adverse Reactions, Alerts Allergen Type Severity Reaction Status Last Updated No Known Allergies Allergy Severe Active 07/27/09 Immunizations No immunization information available. Vital Signs Acute Vital Signs Vital Response Date/Time Blood Pressure 132/74 mm Hg 09/04/2018 11:15am Pulse Pulse Rate (adult) 90 beats per minute (60 - 100) 09/04/2018 11:15am Respiratory Rate 18 breaths per minute (10 - 24) 09/04/2018 11:15am Temperature Source Oral 09/04/2018 11:15am Height 5 ft 4 in 09/04/2018 10:21am Weight 253 lb 09/04/2018 10:21am Body Mass Index 43.4 kg/m^2 09/04/2018 10:21am Results Laboratory Results Test Name Result Units Flags Reference Collection Result Comments Date/Time Date/Time HIV P24 NON-REACTIVE NONREACTIVE 08/21/2018 08/21/2018 Antigen 9:39am 12:27pm HIV (1&2) NON-REACTIVE NONREACTIVE 08/21/2018 08/21/2018 A Nonreactive result does not preclude the possibility of Antibody 9:39am 12:27pm exposure to HIV or infection with HIV. Rapid NONREACTIVE NONREACTIVE 08/21/2018 08/21/2018 Plasma 9:39am 12:18pm Reagin Procedures Procedure Status Date Provider(s) CHYLMD TRACH DNA AMP PROBE Completed 08/21/18 N.GONORRHOEAE DNA AMP PROB Completed 08/21/18 HIV ANTIGEN W/HIV ANTIBODIES Completed 08/21/18 SYPHILIS TEST NON-TREP QUAL Completed 08/21/18 ROUTINE VENIPUNCTURE Completed 08/21/18 X-ray of right foot, three views Completed 09/04/18 DANN SIMMS ACNP Encounters Encounter Location Arrival/Admit Date Discharge/Depart Date Attending Provider Departed [facility] 09/04/18 9:38am 09/04/18 11:15am [facility] Marr [facility] Registered [place] 08/21/18 9:37am [facility], [facility] ASHISH Díaz MD Medical Ctr Recent Diagnosis
--- OUTSIDE RECORDS SUMMARY | 2019-09-03 08:31 | XMS REPORT | Encounter Summary ---
:1990 Author Care Team Providers Name Role Phone Alexis Mares Advisory Internship [phone] Reason for Visit Problem Visit Instructions 1. Venereal disease screening HIV (1+2) Ab screen, serum RPR (rapid plasma reagin), serum 2. Candidiasis of vulva 3. Acute cervicitis urinalysis, dipstick CT + NG DNA, PCR, cervical wet mount, vaginal 4. Candidiasis of vagina Diflucan 100 mg tablet Discussion Note: None recorded.Patient educational handouts: No information available. Plan of Care Reminders Provider Appointments None recorded. Lab Urinalysis, In-House Results Dipstick 08/21/2018 CT + NG DNA, [facility] PCR, Cervical 08/21/[address] [facility] (Lab) HIV (1+2) Ab [facility] Screen, Serum 08/21/[address] [facility] (Lab) RPR (Rapid [facility] Plasma Reagin), Serum 08/21/[address] [facility] (Lab) Wet Mount, In-House Results Vaginal 08/21/2018 Referral None recorded. Procedures None recorded. Surgeries None recorded. Imaging None recorded. Medications Name Start Date bupropion HCl SR 150 mg tablet,12 hr sustained-release cefdinir 300 mg capsule cetirizine 10 mg tablet Diflucan 100 mg tablet one p.o. once a month escitalopram 10 mg tablet Estarylla 0.25 mg-35 mcg tablet fluconazole 150 mg tablet one p.o. now then repeat 3-4 days fluticasone 50 mcg/actuation nasal spray,suspension prednisone 20 mg tablet trazodone 50 mg tablet Medications Administered None recorded. Vitals Height Weight BMI Blood Pressure 5 ft 3 in 255 lbs 45.2 kg/m2 117/92 mm[Hg] Lab Results Date Name Specimen Result Interpretation Description Value Range Status Address 08/21/2018 Urinalysis, Leukocytes Trace In-House Dipstick Results: For Internal Use Only Nitrite negative In-House Results: For Internal Use Only Urobilinogen .2 In-House Results: For Internal Use Only Protein Negative In-House Results: For Internal Use Only Ph 6.0 In-House Results: For Internal Use Only Blood Negative In-House Results: For Internal Use Only Specific 1.025 In-House [place] Results: For Internal Use Only Ketone Negative In-House Results: For Internal Use Only Bilirubin Negative In-House Results: For Internal Use Only Glucose Negative In-House Results: For Internal Use Only Appearance Clear In-House Results: For Internal Use Only Color Yellow In-House Results: For Internal Use Only [place], Clue Cells negative In-House Vaginal Results: For Internal Use Only Wbcs negative In-House Results: For Internal Use Only Trichomonads negative In-House Results: For Internal Use Only Epithelial normal In-House Cells Results: For Internal Use Only Rbcs negative In-House Results: For Internal Use Only Allergies [...] Active 04/05/2018 Bacterial Disease Screening Active 04/05/2018 Bacterial Vaginosis Active Insomnia Active Supraventricular Tachycardia [...] available Vaccine List None recorded. Social History Smoking Status Light Tobacco Smoker (2 PPW) Past Encounters 08/21/2018 Venereal Disease Screening; Candidiasis of Vulva; Acute Cervicitis; Candidiasis of Vagina Alexis Mares MD: [address] [place] [address], Ph. [phone] History of Present Illness Note: Problem visit. Complains of vaginal discharge for two weeks, with itching and odor. Took Diflucan for three days without change in symptoms. She states the itching is primarily on the vulva. She requests STD screening. Review of Systems CONTRACT RUNNER ROS Reported By: Patient Constitutional: Constitutional: no fatigue, no fever, no significant weight gain, no significant weight loss Skin: Skin: no abnormal moles, no rashes [...] no incontinence, no rash, no lesion, no vaginal odor, discharge, vaginal itching Endocrine: Menstrual: no menstrual problems, no PMDD symptoms. Menopausal: no menopausal symptoms. Sexual: no sexual problems Musculoskeletal: Musculoskeletal: no muscle aches, no muscle weakness, no arthralgias/joint pain, no back pain Neurological: Neurologic: no headaches, no dizziness, no LOC, no weakness, no numbness, no seizures Psychological: Psych: no depression, no alcoholism, no sleep disturbances Physical Exam Pelvic Reported By: Patient Skilled Nursing Case Manager: Skilled Nursing Case Manager: present Female Genitalia: Vulva: no masses, no atrophy, no lesions; *mild erythema and edema of labia minora, medial aspect of labia majora.*. Bladder/Urethra: normal meatus, no urethral discharge, no urethral mass, bladder non distended. Vagina no tenderness, no erythema, no vesicle(s) or ulcers, no cystocele, no rectocele, abnormal vaginal discharge. Cervix: grossly normal, no discharge, no cervical motion tenderness
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
[2019-09-03] MEDS ORDERED: NA CHLORIDE 0.9% 1,000 ML ONE (08:56)
[2019-09-03] MEDS ORDERED: DIPHENHYDRAMINE 50 MG/ML VIAL ONE (08:56)
[2019-09-03] MEDS ORDERED: METHYLPREDNISOLONE 125 MG INJ ONE (08:56)
[2019-09-03] MEDS ORDERED: FAMOTIDINE 20 MG/2 ML VIAL IV ONE (08:56)
[2019-09-03 09:17] LABS: Urine Blood NEGATIVE (NEG); Urine Glucose NEGATIVE (NEG); Urine Protein TRACE (NEG); Urine Specific Gravity 1.025 (1.005-1.030); Urine pH 5.5 (5.0-7.0)
[2019-09-03 09:17] LABS: Urine Bacteria <20 /HPF (<20); Urine Culture Reflex Order REFLEXED; Urine RBC <5 /HPF (NONE SEEN)
--- NOTE | 2019-09-03 10:57 | RAD REPORT ---
EXAM DESCRIPTION: RAD - Chest Pa And Lat (2 Views) - 09/03/2019 10:03 am CLINICAL HISTORY: Cough;Fever Chest pain. COMPARISON: Chest Pa And Lat (2 Views) dated 11/22/2017; CHEST PA AND LAT 2 VIEW dated 06/19/2014 FINDINGS: Reticular opacities are present bilaterally suggesting bronchitis or atypical pneumonia. N o focal consolidation typical of pneumonia seen. The heart is normal in size. No displaced fractures.
--- NOTE | 2019-09-03 11:22 | EDPHYS ---
Physician Documentation [facility] Name: Marya Sanchez Age: 29 yrs Sex: Female : 1990 Arrival Date: 09/03/2019 Time: 08:29 Bed 7 Private MD: ED Physician Kenyon Valdes HPI: 09/03 09:24 This 29 yrs old Black Female presents to ER via Ambulatory with complaints of Flu rn Symptoms, Allergic Reaction. 09:24 The patient presents with rash. Onset: The symptoms/episode began/occurred yesterday. rn Associated signs and symptoms: The patient has no apparent associated signs or symptoms. Pertinent positives: hives, rash, Pertinent negatives: chest pain, Syncope. Severity of symptoms: At their worst the symptoms were mild in the emergency department the symptoms are unchanged. The patient has experienced similar episodes in the past. Reports here for 2 reasons, feels like has flu symptoms with cough/congestion/muscle aches/subjective fever, and also with hives. Reports has several episodes in past with hives, never told what caused it except one time told allergic to seafood. No difficulty breathing. No swelling.. 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 - Coronavirus screen:: The patient has NOT traveled to [place], [place], or [place] in the past 14 days. The patient has NOT had contact with known/suspected case of Coronavirus?. - Social history:: Smoking status: Patient denies any tobacco usage or history of. - Family history:: not pertinent. - Ebola Screening: : No symptoms or risks identified at this time. - Hospitalizations: : No recent hospitalization is reported. 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 Exam: 09:24 Constitutional: This is a well developed, well nourished patient who is awake, alert, supervisor international reservations to room without difficulty Head/Face: Normocephalic, atraumatic. Eyes: Pupils equal round and reactive to light, extra-ocular motions intact. Lids and lashes normal. Conjunctiva and sclera are non-icteric and not injected. Cornea within normal limits. Periorbital areas with no swelling, redness, or edema. ENT: + mild pharyngeal erythema, no swelling, no exudate Neck: Trachea midline, no thyromegaly or masses palpated, and no cervical lymphadenopathy. Supple, full range of motion without nuchal rigidity, or vertebral point tenderness. No Meningismus. Cardiovascular: Regular rhythm, tachycardic. No pulse deficits. Respiratory: No increased work of breathing, no retractions or nasal flaring. Abdomen/GI: soft, non-tender Skin: Warm, dry with normal turgor. + diffuse urticaria, no bullae MS/ Extremity: Pulses equal, no cyanosis. Neurovascular intact. Full, normal range of motion. Equal circumference. Neuro: Awake and alert, GCS 15, oriented to person, place, time, and situation. Cranial nerves II-XII grossly intact. Motor strength 5/5 in all extremities. Sensory grossly intact. Cerebellar exam normal. Normal gait. Vital Signs: 08:43 BP 116 / 77; Pulse 125; Resp 20; Temp 98.2; Pulse Ox 100% ; Weight 123.38 kg; bp 09:10 BP 104 / 83; Pulse 99; Resp 21; Pulse Ox 98% ; bp 10:22 BP 108 / 52; Pulse 100; Resp 17; Pulse Ox 100% ; bp 12:00 BP 116 / 67; Pulse 90; Resp 16; Pulse Ox 97% ; bp 13:00 BP 99 / 55; Pulse 95; Resp 17; Temp 98.5; Pulse Ox 99% ; bp MDM: 08:38 Patient medically screened. rn 11:18 Differential diagnosis: urticaria, pneumonia. 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 Counseling: I had a detailed discussion with the patient and/or guardian regarding: the historical points, exam findings, and any diagnostic results supporting the discharge/admit diagnosis, lab results, radiology results, the need for outpatient follow up, to return to the emergency department if symptoms worsen or persist or if there are any questions or concerns that arise at home. Response to treatment: the patient's symptoms have markedly improved after treatment, and as a result, I will discharge patient. Special discussion: I discussed with the patient/guardian in detail that at this point there is no indication for admission to the hospital. It is understood, however, that if the symptoms persist or worsen the patient needs to return immediately for re-evaluation. ED course: Xray shows interstitial pneumonia/atypical pneumonia, consistent with story, urticaria improved, will dc home with abx/inhaler/steroids, and return precautions. . 09/03 08:44 Order name: Flu; Complete Time: 10:46 rn 09/03 08:44 Order name: Strep; Complete Time: 10:46 rn 09/03 08:44 Order name: Urine Microscopic Only rn 09/03 09:10 Order name: Urine Dipstick--Ancillary (enter results) bd 09/03 09:10 Order name: Urine --Ancillary (enter results) bd 09/03 09:18 Order name: Urine --Ancillary EDOK 09/03 08:44 Order name: XRAY Chest Pa And Lat (2 Views); Complete Time: 11:11 rn 09/03 09:18 Order name: Urine Dipstick-Ancillary EDOK 09/03 09:26 Order name: Urine Culture EDOK 09/03 10:06 Order name: Throat Culture EDOK 09/03 08:44 Order name: IV Start; Complete Time: 09:22 rn 09/03 08:44 Order name: EKG; Complete Time: 08:59 rn 09/03 08:44 Order name: EKG - Nurse/Tech; Complete Time: 09:22 rn 09/03 08:44 Order name: Urine Test (obtain specimen); Complete Time: 08:57 rn 09/03 08:44 Order name: Urine Dipstick-Ancillary (obtain specimen); Complete Time: 08:57 rn Administered Medications: 09:10 Drug: NS 0.9% 1000 ml Route: IV; Rate: 1000 ml; Site: right upper arm; bp 13:12 Follow up: IV Status: Completed infusion; IV Intake: 1000ml bp 09:10 Drug: SOLU-Medrol 125 mg Route: IVP; Site: right upper arm; bp 11:22 Follow up: Response: Marked relief of symptoms bp 09:10 Drug: Benadryl 25 mg Route: IVP; Site: right upper arm; bp 11:22 Follow up: Response: Marked relief of symptoms bp 09:10 Drug: Pepcid 20 mg Route: IVP; Site: right upper arm; bp 11:22 Follow up: Response: Marked relief of symptoms bp 11:30 Drug: LevaQUIN 750 mg Volume: 150 ml; Route: IVPB; Infused Over: 90 mins; Site: right bp antecubital; 13:12 Follow up: IV Status: Completed infusion; IV Intake: 150ml bp Disposition: 09/03/19 11:21 Discharged to Home. Impression: Atypical Pneumonia, Urticaria, unspecified. - Condition is Stable. - Discharge Instructions: Community-Acquired Pneumonia, Adult. - Prescriptions for Levaquin 500 mg Oral Tablet - take 1 tablet by ORAL route once daily for 7 days; 7 tablet. Prednisone 20 mg Oral Tablet - take 3 tablet by ORAL route once daily for 5 days; 15 tablet. Albuterol Sulfate 90 mcg/actuation - inhale 1-2 puff by INHALATION route every 4-6 hours; 1 Inhaler. - Work release form, Medication Reconciliation Form, Thank You Letter, Antibiotic Education, Prescription Opioid Use form. - Follow up: Private Physician; When: As needed; Reason: Recheck today's complaints, Re-evaluation by your physician. - Problem is new. - Symptoms have improved. Signatures: Dispatcher [employer] EDMS Kenyon Valdes MD MD rn Peltier, Brian, RN RN bp Corrections: (The following items were deleted from the chart) 09:27 09:24 Constitutional: This is a well developed, well nourished patient who is awake, rn alert, ambulatory to room without difficulty Head/Face: Normocephalic, atraumatic. Eyes: Pupils equal round and reactive to light, extra-ocular motions intact. Lids and lashes normal. Conjunctiva and sclera are non-icteric and not injected. Cornea within normal limits. Periorbital areas with no swelling, redness, or edema. ENT: + mild pharyngeal erythema, no swelling, no exudate Neck: Trachea midline, no thyromegaly or masses palpated, and no cervical lymphadenopathy. Supple, full range of motion without nuchal rigidity, or vertebral point tenderness. No Meningismus. Cardiovascular: Regular rhythm, tachycardic. No pulse deficits. Respiratory: No increased work of breathing, no retractions or nasal flaring. Abdomen/GI: soft, non-tender MS/ Extremity: Pulses equal, no cyanosis. Neurovascular intact. Full, normal range of motion. Equal circumference. Neuro: Awake and alert, GCS 15, oriented to person, place, time, and situation. Cranial nerves II-XII grossly intact. Motor strength 5/5 in all extremities. Sensory grossly intact. Cerebellar exam normal. Normal gait. rn 13:12 11:21 09/03/2019 11:21 Discharged to Home. Impression: Atypical Pneumonia; Urticaria, bp unspecified. Condition is Stable. Forms are Medication Reconciliation Form, Thank You Letter, Antibiotic Education, Prescription Opioid Use. Follow up: Private Physician; When: As needed; Reason: Recheck today's complaints, Re-evaluation by your physician. Problem is new. Symptoms have improved. rn
--- NOTE | 2019-09-03 11:22 | ER ---
Nurse's Notes [facility] Name: Marya Sanchez Age: 29 yrs Sex: Female : 1990 Arrival Date: 09/03/2019 Time: 08:29 Bed 7 Private MD: Diagnosis: Atypical Pneumonia;Urticaria, unspecified Presentation: 09/03 08:38 Presenting complaint: Patient states: RASH AND MYALGIA x2 DAYS. Transition of care: bp patient was not received from another setting of care. Onset: The symptoms/episode began/occurred 2 day(s) ago. Anaphylaxis evaluation, no signs or symptoms of anaphylaxis were noted. Onset of symptoms is unknown. Risk Assessment: Do you want to hurt yourself or someone else? Patient reports no desire to harm self or others. Initial Sepsis Screen: Does the patient meet any 2 criteria? HR > 90 bpm. No. Patient's initial sepsis screen is negative. Does the patient have a suspected source of infection? No. Patient's initial sepsis screen is negative. Care prior to arrival: None. 08:38 Method Of Arrival: Ambulatory bp 08:38 Acuity: JUAN 3 bp Triage Assessment: 08:40 General: Appears in no apparent distress. uncomfortable, obese, Behavior is bp cooperative, appropriate for age, anxious. Pain: Denies pain. EENT: No deficits noted. Neuro: No deficits noted. Cardiovascular: No deficits noted. Respiratory: No deficits noted. GI: No signs and/or symptoms were reported involving the gastrointestinal system. : No signs and/or symptoms were reported regarding the genitourinary system. Derm: No deficits noted. Musculoskeletal: No deficits noted. 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 - Coronavirus screen:: The patient has NOT traveled to [place], [place], or [place] in the past 14 days. The patient has NOT had contact with known/suspected case of Coronavirus?. - Social history:: Smoking status: Patient denies any tobacco usage or history of. - Family history:: not pertinent. - Ebola Screening: : No symptoms or risks identified at this time. - Hospitalizations: : No recent hospitalization is reported. Screenin:40 Abuse screen: Denies threats or abuse. Denies injuries from another. Nutritional bp screening: No deficits noted. Tuberculosis screening: No symptoms or risk factors identified. Fall Risk None identified. Assessment: 08:40 General: SEE TRIAGE NOTE. Respiratory: Airway is patent Respiratory effort is even, bp unlabored, Breath sounds are clear bilaterally. 09:10 Reassessment: PT HAD SYNCOPAL EPISODE DURING PIV INSERTION WITH PALLOR, DIAPHORESIS AND bp 5-10 SECOND LOSS OF CONSCIOUSNESS. PT RETURNED TO BASELINE AFTER EPISODE. XRAY ON HOLD. 10:22 Reassessment: PT COMPLETED XRAY WITHOUT DIFFICULTY. VS STABLE ON MONITOR. RESULTS bp PENDING FOR DISPO. 11:33 Reassessment: D/C ON HOLD FOR IV ABX. bp 13:09 Reassessment: ABX COMPLETE. PT D/C HOME AMBULATORY, DX WITH PNEUMONIA. bp Vital Signs: 08:43 BP 116 / 77; Pulse 125; Resp 20; Temp 98.2; Pulse Ox 100% ; Weight 123.38 kg; bp 09:10 BP 104 / 83; Pulse 99; Resp 21; Pulse Ox 98% ; bp 10:22 BP 108 / 52; Pulse 100; Resp 17; Pulse Ox 100% ; bp 12:00 BP 116 / 67; Pulse 90; Resp 16; Pulse Ox 97% ; bp 13:00 BP 99 / 55; Pulse 95; Resp 17; Temp 98.5; Pulse Ox 99% ; bp ED Course: 08:29 Patient arrived in ED. as 08:32 Jose Castillo, RN is Primary Nurse. bp 08:38 Kenyon Valdes MD is Attending Physician. rn 08:39 Triage completed. bp 08:40 Patient has correct armband on for positive identification. Bed in low position. Call bp light in reach. Side rails up X2. Pulse ox on. NIBP on. 08:43 Arm band placed on. bp 09:10 Inserted saline lock: 22 gauge in right upper arm, using aseptic technique. Blood bp collected. 09:20 Radiology exam delayed due to PT passed out in stretcher after IV, XRAY delayed. mh1 09:22 Urine --Ancillary (enter results) Sent. bp 09:22 Urine Dipstick--Ancillary (enter results) Sent. bp 09:25 EKG done, by technology intern. reviewed by Kenyon Valdes MD. at1 10:05 XRAY Chest Pa And Lat (2 Views) In Process Unspecified. EDMS 13:11 No provider procedures requiring assistance completed. IV discontinued, intact, bp bleeding controlled, No redness/swelling at site. Pressure dressing applied. Administered Medications: 09:10 Drug: NS 0.9% 1000 ml Route: IV; Rate: 1000 ml; Site: right upper arm; bp 13:12 Follow up: IV Status: Completed infusion; IV Intake: 1000ml bp 09:10 Drug: SOLU-Medrol 125 mg Route: IVP; Site: right upper arm; bp 11:22 Follow up: Response: Marked relief of symptoms bp 09:10 Drug: Benadryl 25 mg Route: IVP; Site: right upper arm; bp 11:22 Follow up: Response: Marked relief of symptoms bp 09:10 Drug: Pepcid 20 mg Route: IVP; Site: right upper arm; bp 11:22 Follow up: Response: Marked relief of symptoms bp 11:30 Drug: LevaQUIN 750 mg Volume: 150 ml; Route: IVPB; Infused Over: 90 mins; Site: right bp antecubital; 13:12 Follow up: IV Status: Completed infusion; IV Intake: 150ml bp Intake: 13:12 IV: 1000ml; Total: 1000ml. bp 13:12 IV: 150ml; Total: 1150ml. bp Outcome: 11:21 Discharge ordered by . rn 13:11 Discharged to home ambulatory. bp 13:11 Condition: stable 13:11 Discharge instructions given to patient, Instructed on discharge instructions, follow up and referral plans. medication usage, Demonstrated understanding of instructions, follow-up care, medications, Prescriptions given X 3. 13:12 Patient left the ED. bp Addendum: 09/07/2019 07:10 Addendum: Culture Results: Positive urine culture. No further action required. Bacteria e b sensitive to prescribed antibiotic. Signatures: Dispatcher [employer] EDMS Laquita Vuong mh1 Arabella Johnson Roman, MD MD rn Paola Rocha, american history professor EKG Tat1 Jose Castillo, YOBANI RN bp Mckenzie Orozco
[2019-09-03] MEDS ORDERED: Levofloxacin 750mg IV 750 MG/150 ML BAG IV ONE (11:32)
--- NOTE | 2019-09-03 12:26 | EKG ---
Test Date: 2019-09-03 Test Time: 09:03:16 Bulk Station Agent: LOLY MEASUREMENT RESULTS: Intervals: Rate: 110 MA: 132 QRSD: 74 QT: 340 QTc: 460 Goehner: P: 62 MA: 132 QRS: 81 T: 44 INTERPRETIVE STATEMENTS: Sinus tachycardia Otherwise normal ECG Compared to ECG 11/22/2017 20:54:16 Sinus rhythm no longer present Electronically Signed On 09-03-19 12:26:14 STATION USHER by Elan Wilson
[2019-09-03 13:40] VITALS: BP 99/55; TEMP 98.5; O2SAT 99
== END 2019-09-03 13:12 | disposition home or self-care (01) ==
LOC: ER 08:28
DX: L50.9 Urticaria, unspecified (principal); J18.9 Pneumonia, unspecified organism; I10 Essential (primary) hypertension; Z91.013 Allergy to seafood
CPT/HCPCS: 71046; 81003; 81015; 81025; 87070; 87077; 87081; 87086; 87088; 87186; 87804; 93005; 96361; 96365; 96366; 96375; 99284; J1200; J2930; J7030

== ENCOUNTER 2019-09-06 07:42 | Emergency (ER) | payer SELFPAY ==
--- OUTSIDE RECORDS SUMMARY | 2019-09-06 07:44 | XMS REPORT ---
:1990 Author Organization [facility] Address [address] [place] [address] Dr. Awan [address] [place] [id number] Care Team Providers Name Role Phone Unavailable Unavailable Unavailable Problems This patient has no known problems. Allergies, Adverse Reactions, Alerts This patient has no known allergies or adverse reactions. Medications This patient has no known medications.
--- OUTSIDE RECORDS SUMMARY | 2019-09-06 07:44 | XMS REPORT ---
[...] Status Dosage System Date Date Trazodone HCl [facility] 89826963944 50 MG Orally December 19, Active 1 tablet Once a day 2017 at bedtime as needed Estarylla [facility] [address]-34 Active not defined Montelukast ND 99901628516 10 MG Orally Active 1 tablet Sodium Once a day in the evening Benadryl [facility] 71396679006 25 MG Orally Active 1 tablet Allergy every 8 hrs as needed ZyrTEC [facility] 67250600641 Active not defined Results No Known Results Summary Purpose eClinicalWorks Submission
--- OUTSIDE RECORDS SUMMARY | 2019-09-06 07:44 | XMS REPORT ---
[...] Medications Results No Known Results Summary Purpose [employer] Submission
--- OUTSIDE RECORDS SUMMARY | 2019-09-06 07:44 | XMS REPORT ---
[...] End Status Dosage System Date Date Estarylla [facility] [address]-33 Active not defined Montelukast [facility] 81605170599 10 MG Orally Active 1 tablet Sodium Once a day in the evening Trazodone HCl [facility] 13690514648 50 MG Orally December 19, Active 1 tablet Once a day 2018 at bedtime as needed ZyrTEC [facility] 27796442387 Active not defined Results No Known Results Summary Purpose eClinicalWorks Submission
--- OUTSIDE RECORDS SUMMARY | 2019-09-06 07:45 | XMS REPORT ---
[...] Status Dosage System Date Date Trazodone HCl [facility] 91325226563 50 MG Orally Inactive 1 tablet Once a day at bedtime as needed Cetirizine HCl ND 70028130430 10 MG Orally Active 1 tablet Once a day ZyrTEC [facility] 30865035348 Active not defined Wellbutrin SR ND 43261153143 150 MG Orally Mar 10, Active as twice a day 2018 directed Flonase ND 70292262546 50 MCG/ACT Active 2 spray in Nasally Once a each day nostril PredniSONE ND 62920347730 20 MG Orally Mar 27, Active 2 tablets Once a day 2018 dailyx 5 days then 1 tablet daily x 5 days Lexapro [facility] 97819177844 10 MG Orally Inactive 1 tablet Once a day Estarylla [facility] [address]-65 Active not defined Montelukast [facility] 73206962200 10 MG Orally Active 1 tablet Sodium Once a day in the evening Benadryl [facility] 47032497854 25 MG Orally Active 1 tablet Allergy every 8 hrs as needed Cefdinir [facility] 90704955603 300 MG Orally Apr 09Mar Active as twice a day 2017 Results No Known Results Summary Purpose eClinicalWorks Submission
--- OUTSIDE RECORDS SUMMARY | 2019-09-06 07:45 | XMS REPORT ---
[...] End Status Dosage System Date Date Lexapro [facility] 84806242720 10 MG Orally Mar 27, Active 1 tablet Once a day 2017 Cetirizine HCl [facility] 67597635296 10 MG Orally Active 1 tablet Once a day Estarylla [facility] [address]-26 Active not defined Flonase [facility] 18445038851 50 MCG/ACT Active 2 spray Nasally Once a in each day nostril Trazodone HCl [facility] 61214908022 50 MG Orally Inactive 1 tablet Once a day at bedtime as needed Augmentin [facility] 39806950835 875-125 MG Sept Active 1 tablet Orally every 12 07, hrs 2017 ZyrTEC [facility] 71858286847 Active not defined Montelukast [facility] 47179962648 10 MG Orally Active 1 tablet Sodium Once a day in the evening Benadryl [facility] 30230267853 25 MG Orally Active 1 tablet Allergy every 8 hrs as needed PredniSONE [facility] 33175793872 20 MG Orally Mar 27, Active 2 tablets Once a day 2017 dailyx 5 days then 1 tablet daily x 5 days Results No Known Results Summary Purpose eClinicalWorks Submission
[2019-09-06] MEDS ORDERED: METHYLPREDNISOLONE 125 MG INJ ONE (08:17)
[2019-09-06] MEDS ORDERED: NA CHLORIDE 0.9% 1,000 ML ONE (08:18)
[2019-09-06] MEDS ORDERED: DIPHENHYDRAMINE 50 MG/ML VIAL ONE (08:18)
[2019-09-06] MEDS ORDERED: FAMOTIDINE 20 MG/2 ML VIAL IV ONE (08:18)
--- NOTE | 2019-09-06 10:06 | ER ---
Nurse's Notes [facility] [place] Name: Marya Sanchez Age: 29 yrs Sex: Female : 1990 Arrival Date: 09/06/2019 Time: 07:43 Bed 19 Private MD: Diagnosis: Allergy, unspecified Presentation: 09/06 07:52 Presenting complaint: Patient states: was seen here recently for hives/allergic iw reaction, was sent home with steroids, has not gotten any better, still itching and has hives, also is on abx for pneumonia. Transition of care: patient was not received from another setting of care. Onset: The symptoms/episode began/occurred 3 day(s) ago. Anaphylaxis evaluation, no signs or symptoms of anaphylaxis were noted. Onset of symptoms was September 03, 2019. Risk Assessment: Do you want to hurt yourself or someone else? Patient reports no desire to harm self or others. Initial Sepsis Screen: Does the patient meet any 2 criteria? No. Patient's initial sepsis screen is negative. Does the patient have a suspected source of infection? No. Patient's initial sepsis screen is negative. 07:52 Method Of Arrival: Ambulatory iw 07:52 Acuity: JUAN 3 iw 10:53 Care prior to arrival: None. 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 - Coronavirus screen:: The patient has NOT traveled to [place], [place], or [place] in the past 14 days. Proceed with normal triage process as indicated. - Social history:: Patient/guardian denies using alcohol, street drugs, The patient lives with family, with spouse, Smoking status: Patient reports the use of cigarette tobacco products, smokes one-half pack cigarettes per day. - Family history:: not pertinent. - Ebola Screening: : Patient negative for fever greater than or equal to 101.5 degrees Fahrenheit, and additional compatible Ebola Virus Disease symptoms Patient denies exposure to infectious person Patient denies travel to an Ebola-affected area in the 21 days before illness onset No symptoms or risks identified at this time. Screenin:17 Abuse screen: Denies threats or abuse. Denies injuries from another. Nutritional bp screening: No deficits noted. Tuberculosis screening: No symptoms or risk factors identified. Fall Risk None identified. Assessment: 09:00 General: Appears in no apparent distress. comfortable, Behavior is cooperative, bp appropriate for age, anxious. Pain: Denies pain. Neuro: Level of Consciousness is alert, obeys commands, lethargic, Oriented to person, place, time, situation, Appropriate for age. Cardiovascular: Rhythm is sinus rhythm. Respiratory: Airway is patent Respiratory effort is even, unlabored, Respiratory pattern is regular, symmetrical, Breath sounds are clear bilaterally. GI: No signs and/or symptoms were reported involving the gastrointestinal system. : No signs and/or symptoms were reported regarding the genitourinary system. EENT: No deficits noted. Derm: Rash noted that is itchy, red, urticaria. Musculoskeletal: No deficits noted. 10:05 Reassessment: D/C ON HOLD FOR IVF COMPLETION. bp 10:52 Reassessment: PT D/C HOME AMBULATORY, DX WITH ALLERGY. bp Vital Signs: 07:54 BP 107 / 81; Pulse 115; Resp 20 S; Temp 97.5; Pulse Ox 100% on R/A; Weight 123.38 kg; iw Height 5 ft. 3 in. (160.02 cm); Pain 8/10; 09:18 BP 85 / 53; Pulse 82; Resp 16; Pulse Ox 99% ; bp 10:06 BP 104 / 52; Pulse 93; Resp 14; Pulse Ox 99% ; bp 10:51 BP 122 / 81; Pulse 81; Resp 17; Temp 97.5; Pulse Ox 100% ; bp 07:54 Body Mass Index 48.18 (123.38 kg, 160.02 cm) iw ED Course: 07:43 Patient arrived in ED. as 07:53 Triage completed. iw 07:54 Arm band placed on. iw 07:56 Loida Mayers MD is Attending Physician. ma2 08:08 Jairo Hughes, YOBANI is Primary Nurse. sg 08:42 Missed attempt(s): 24 gauge in right hand. Bleeding controlled, band aid applied, dh3 catheter tip intact. 08:48 Missed attempt(s): 22 gauge in right Bleeding controlled, band aid applied, catheter dh3 tip intact. 09:10 Inserted saline lock: 22 gauge in left antecubital area, using aseptic technique. bp 09:17 Patient has correct armband on for positive identification. Bed in low position. Call bp light in reach. Side rails up X2. Pulse ox on. NIBP on. 10:52 No provider procedures requiring assistance completed. IV discontinued, intact, bp bleeding controlled, No redness/swelling at site. Pressure dressing applied. Administered Medications: 09:10 Drug: NS 0.9% 1000 ml Route: IV; Rate: 1 bolus; Site: left antecubital; bp 10:54 Follow up: IV Status: Completed infusion; IV Intake: 1000ml bp 09:10 Drug: Benadryl 50 mg Route: IVP; Site: left antecubital; bp 10:54 Follow up: Response: Marked relief of symptoms bp 09:10 Drug: MethylPrednisoLONE 125 mg Route: IVP; Site: left antecubital; bp 10:54 Follow up: Response: Marked relief of symptoms bp 09:10 Drug: Pepcid 20 mg Route: IVP; Site: left antecubital; bp 10:55 Follow up: Response: Marked relief of symptoms bp Intake: 10:54 IV: 1000ml; Total: 1000ml. bp Outcome: 10:05 Discharge ordered by . ma2 10:52 Discharged to home ambulatory. bp 10:52 Condition: stable 10:52 Discharge instructions given to patient, Instructed on discharge instructions, follow up and referral plans. medication usage, Demonstrated understanding of instructions, follow-up care, medications, Prescriptions given X 3. 10:54 Patient left the ED. bp Signatures: Jairo Hughes RN RN sg Martinez, Amelia as Williams, Irene, RN RN Makayla Ledezma [facility] Jose Castillo RN RN bp Loida Mayers MD MD ma2
--- NOTE | 2019-09-06 10:06 | EDPHYS ---
Physician Documentation [facility] Name: Marya Sanchez Age: 29 yrs Sex: Female : 1990 Arrival Date: 09/06/2019 Time: 07:43 Bed 19 Private MD: ED Physician Loida Mayers HPI: 09/06 08:02 This 29 yrs old Black Female presents to ER via Ambulatory with complaints of Hives, ma2 Itching, Wheezing > 1 Year. 08:02 Onset: The symptoms/episode began/occurred gradually, 1 week(s) ago. Associated signs ma2 and symptoms: Pertinent positives: Pertinent negatives: choking, headache, rash, vomiting. Severity of symptoms: At their worst the symptoms were moderate. The patient has experienced similar episodes in the past. 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 - Coronavirus screen:: The patient has NOT traveled to [place], [place], or [place] in the past 14 days. Proceed with normal triage process as indicated. - Social history:: Patient/guardian denies using alcohol, street drugs, The patient lives with family, with spouse, Smoking status: Patient reports the use of cigarette tobacco products, smokes one-half pack cigarettes per day. - Family history:: not pertinent. - Ebola Screening: : Patient negative for fever greater than or equal to 101.5 degrees Fahrenheit, and additional compatible Ebola Virus Disease symptoms Patient denies exposure to infectious person Patient denies travel to an Ebola-affected area in the 21 days before illness onset No symptoms or risks identified at this time. ROS: 08:02 Constitutional: Negative for fever, chills, and weight loss. ma2 08:02 All other systems are negative. Exam: 08:02 Constitutional: This is a well developed, well nourished patient who is awake, alert, ma2 and in no acute distress. Head/Face: Normocephalic, atraumatic. Eyes: Pupils equal round and reactive to light, extra-ocular motions intact. Lids and lashes normal. Conjunctiva and sclera are non-icteric and not injected. Cornea within normal limits. Periorbital areas with no swelling, redness, or edema. ENT: Nares patent. No nasal discharge, no septal abnormalities noted. Tympanic membranes are normal and external auditory canals are clear. Oropharynx with no redness, swelling, or masses, exudates, or evidence of obstruction, uvula midline. Mucous membranes moist. Neck: Trachea midline, no thyromegaly or masses palpated, and no cervical lymphadenopathy. Supple, full range of motion without nuchal rigidity, or vertebral point tenderness. No Meningismus. Chest/axilla: Normal chest wall appearance and motion. Nontender with no deformity. No lesions are appreciated. Cardiovascular: Regular rate and rhythm with a normal S1 and S2. No gallops, murmurs, or rubs. Normal PMI, no JVD. No pulse deficits. Respiratory: Lungs have equal breath sounds bilaterally, clear to auscultation and percussion. No rales, rhonchi or wheezes noted. No increased work of breathing, no retractions or nasal flaring. Abdomen/GI: Soft, non-tender, with normal bowel sounds. No distension or tympany. No guarding or rebound. No evidence of tenderness throughout. Back: No spinal tenderness. No costovertebral tenderness. Full range of motion. Skin: hives, Warm, dry with normal turgor. Normal color with no rashes, no lesions, and no evidence of cellulitis. MS/ Extremity: Pulses equal, no cyanosis. Neurovascular intact. Full, normal range of motion. Vital Signs: 07:54 BP 107 / 81; Pulse 115; Resp 20 S; Temp 97.5; Pulse Ox 100% on R/A; Weight 123.38 kg; iw Height 5 ft. 3 in. (160.02 cm); Pain 8/10; 09:18 BP 85 / 53; Pulse 82; Resp 16; Pulse Ox 99% ; bp 10:06 BP 104 / 52; Pulse 93; Resp 14; Pulse Ox 99% ; bp 10:51 BP 122 / 81; Pulse 81; Resp 17; Temp 97.5; Pulse Ox 100% ; bp 07:54 Body Mass Index 48.18 (123.38 kg, 160.02 cm) iw MDM: 07:56 Patient medically screened. ma2 08:02 Differential diagnosis: reactive airway, URI, allergic reaction. Data reviewed: vital ma2 signs, nurses notes. 10:04 Counseling: I had a detailed discussion with the patient and/or guardian regarding: the ma2 historical points, exam findings, and any diagnostic results supporting the discharge/admit diagnosis, the presence of at least one elevated blood pressure reading (>120/80) during this emergency department visit. Response to treatment: the patient's symptoms have markedly improved after treatment. 09/06 08:08 Order name: IV Saline Lock; Complete Time: 09:14 sg Administered Medications: 09:10 Drug: NS 0.9% 1000 ml Route: IV; Rate: 1 bolus; Site: left antecubital; bp 10:54 Follow up: IV Status: Completed infusion; IV Intake: 1000ml bp 09:10 Drug: Benadryl 50 mg Route: IVP; Site: left antecubital; bp 10:54 Follow up: Response: Marked relief of symptoms bp 09:10 Drug: MethylPrednisoLONE 125 mg Route: IVP; Site: left antecubital; bp 10:54 Follow up: Response: Marked relief of symptoms bp 09:10 Drug: Pepcid 20 mg Route: IVP; Site: left antecubital; bp 10:55 Follow up: Response: Marked relief of symptoms bp Disposition: 09/06/19 10:05 Discharged to Home. Impression: Allergy, unspecified. - Condition is Stable. - Discharge Instructions: Allergy Skin Testing. - Prescriptions for Medrol (Edwardo) 4 mg Oral Tablets, Dose Pack - take 1 tablet by ORAL route as directed - follow package instructions; 1 packet. Pepcid 20 mg Oral Tablet - take 1 tablet by ORAL route once daily; 20 tablet. Benadryl 25 mg Oral Capsule - take 1 capsule by ORAL route every 6 hours As needed; 30 tablet. - Medication Reconciliation Form, Thank You Letter, Antibiotic Education, Prescription Opioid Use form. - Follow up: Private Physician; When: Tomorrow; Reason: Continuance of care. Signatures: Jairo Hughes RN RN Elisha Salas RN RN Jose Castillo RN RN bp Alzahri, Mohammad, MD MD ma2 Corrections: (The following items were deleted from the chart) 10:54 10:05 09/06/2019 10:05 Discharged to Home. Impression: Allergy, unspecified. Condition bp is Stable. Prescriptions for Benazepril 40 mg Oral Tablet - take 1 tablet by ORAL route once daily; 30 tablet, Medrol (Edwardo) 4 mg Oral Tablets, Dose Pack - take 1 tablet by ORAL route as directed - follow package instructions; 1 packet, Pepcid 20 mg Oral Tablet - take 1 tablet by ORAL route once daily; 20 tablet. and Forms are Medication Reconciliation Form, Thank You Letter, Antibiotic Education, Prescription Opioid Use. Follow up: Private Physician; When: Tomorrow; Reason: Continuance of care. ma2
[2019-09-06 10:58] VITALS: TEMP 97.5
[2019-09-06 11:09] VITALS: BP 122/81; O2SAT 100
== END 2019-09-06 10:54 | disposition home or self-care (01) ==
LOC: ER 07:42
DX: T78.40XA Allergy, unspecified, initial encounter (principal); X58.XXXA Exposure to other specified factors, initial encounter
CPT/HCPCS: 96361; 96374; 96375; 99284; J1200; J2930; J7030

== ENCOUNTER 2022-09-12 13:30 | Emergency (ER) | payer OTHER, SELFPAY ==
--- OUTSIDE RECORDS SUMMARY | 2022-09-12 13:33 | XMS REPORT | Continuity of Care Document ---
:1990 Author Organization [facility] t Address [address] [place] [address] Care Team Providers Name Role Phone PCP, PATIENT DOES NOT HAVE A Primary Care Physician UnavailMansi Schroeder Attending Clinician Unavailable LEONARDO_ESTER Attending Clinician Unavailable Crow_Vishnu Attending Clinician Unavailable Guanaco HILTON, Gloria Becerril Attending Clinician Unavailable LAITH MICHELE III Attending Clinician Unavailable Doctor Unassigned, [place] Attending Clinician Unavailable Sky AVERY Alayna Attending Clinician [phone] Jodie Burgos NP Attending Clinician JODIE BURGOS Attending Clinician Unavailable LEONARDO_YONISЕКАТЕРИНА Admitting Clinician Unavailable Crow_Vishnu Admitting Clinician Unavailable JODIE BURGOS Admitting Clinician Unavailable Payers Payer Name Policy Type Policy Number Effective Date Expiration Date S gr[place] [id number] 2021 OF [place] (PPO) 00:00:00 [place] [id number] WOMEN'S HEALTH PROGRAM (MEDICAID) Blue Cross Blue 6 [id number] 2021 [facility] Shield of [place] 00:00:00 [facility] [place]ILDR[place] [id number] 2015 HEALTH 00:00:00 Problems Condition Condition Condition Status Onset Resolution Last Treating Co mments Source Name Details Category Date Date Treatment Clinician Date Problem Active 2018-07 [place] test Test 0-03 da negative Negative 00:00: Medica l 00 Group Venereal Venereal Problem Active 2018-07 [place] disease Disease 0-03 da screening Screening 00:00: Medi la nena Group Contracept Contracept Problem Active M [place] ion ion 9-06 da education Education 00:00: Medi la nena 00 Group Removal of Removal of Problem Active M [place] intrauteri Intrauteri 3-07 da ne device ne Device 00:00: Medi la nena 00 Group IUD IUD Problem Active [place] contracept Contracept 7-17 da ion ion 00:00: Medical 00 Group 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 00:00: Medical simplex Simplex 00 Group Gastroesop Gastroesop Problem Active M [place] hageal hageal 6-03 da reflux Reflux 00:00: Medical disease Disease 00 Group Influenza Influenza Problem Active [place] 3-21 da 00:00: Medical 00 Group Anxiety Anxiety Problem Active [place] disorder Disorder 2-12 da 00:00: Medical 00 Group 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 of 00:00: Medica l undetermin Undetermin 00 Gr oup ed ed significan Significan ce on ce on cervical Cervical Papanicola Papanicola ou smear ou Smear 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 Papillomav 00:00: Me dical irus test irus Test 00 Grou p positive Positive Supraventr Supraventr Problem Active M [place] icular icular da tachycardi Tachycardi Me dical a a Group Female Female Problem Active [place] stress Stress da incontinen Incontinen Me dical ce ce Group Edematous Edematous Problem Active [place] skin Skin da Medical Group Post-mictu Post-mictu Problem Active M [place] rition rition da incontinen Incontinen Me dical ce ce Group Problem Active [place] heart Heart da finding [facility] No known No known Disease Unive rs active active ity of problems problems [facility] [place] [id number] Depression Problem Active Com mon with Spirit anxiety - [facility] [id number] History of Problem Active Co mmon pneumonia [facility] [id number] [place] of Problem Active Commo n throat [facility] [id number] Primary Problem Active Common insomnia [facility] [id number] Hives of Problem Active Comm on unknown Spirit origin [facility] [id number] Seasonal Problem Active Comm on allergies [facility] [id number] Insomnia, Problem Active Com mon unspecifie Spirit d type [facility] Depression Depression Problem Active C ommon [facility] [id number] Moderately Problem Active Co mmon severe Spirit major - [facility] depression [facility] [id number] Hoarseness Problem Active Com mon of voice [facility] [id number] History of Problem Active C ommon [id number] supraventr Spiri t icular - [facility] tachycardi [facility] [id number] Morbid Problem Active Commo n 9104 (severe) Spirit obesity - [facility] due to [facility] Asthma Asthma Problem Active Common Spirit [facility] Cardiac Abnormal Problem Active Common arrhythmia heart [facility] rhythm [facility] High High Problem Active Common cholestero cholestero Sp [place] - [facility] [id number] Body mass Problem Active Com mon index Spirit [BMI] - [facility] 45.0-49.9[facility] Allergies, Adverse Reactions, Alerts Allergy Allergy Status Severity Reaction(s) Onset Inactive Treating Comm ents Source Name Type Date Date Clinician Seafood/ Propensi Active Rash 2014-07 Univer s Fish ty to 2-24 ity of adverse 00:00: [place] reaction 00 Medical s Branch SEAFOOD/ Food Active Rash 2014-07 Univers FISH 2-24 ity of 00:00: [place] 00 Medical Branch Seafood Seafood Active Unknown [facility] - [facility] Iodine Allergy Active [place] to [facility] Medical e Group Social History Social Habit Start Date Stop Date Quantity Comments Source Exposure to Not sure [facility] SARS-CoV-2 (event) [facility] [place] History SDRI University o [facility] University o f Alcohol Std Drinks [facility] [place] History [facility]ly [facility] o f Alcohol Binge [facility] al Branch History of Tobacco Current Smoker Co mmon Spirit - Use [facility] Sex Assigned At Common Sp [place] - [facility] Cigarettes smoked 2021-10-13 2021-10-13 Univers ity of current (pack per 00:00:00 00:00:00 [facility] ) - Reported Branch Cigarette 2021-10-13 2021-10-13 University of pack-years 00:00:00 00:00:00 [facility] [place] Tobacco use and 2021-10-13 2021-10-13 Never used Universit y of exposure 00:00:00 00:00:00 [facility] [place] Alcohol intake 2021-10-13 2021-10-13 Current drinker Unive rsity of 00:00:00 00:00:00 of alcohol [facility] (finding) [place] Alcohol Comment 2021-10-13 2021-10-13 social Universit y of 00:00:00 00:00:00 [facility] [place] Smoking Status Start Date Stop Date Source Heavy Tobacco Smoker Karlie nicole Group Unknown if ever smoked Universit y of [facility] [place] Current Smoker 2021-10-06 00:00:00 Common Spiri t [facility] Medications Ordered Filled Start Stop Current Ordering Indication Dosage Frequency Signature Comments Components Source Medication Medication Date Date Medication? Clinician (SIG) Name Name FLUoxetine FLUoxetine No 1{table QD FLUoxetine HCl 20 MG HCl 20 MG 3-09 t} HCl 20 MG 00:00: 00 HYDROcodone 2020- No 2{tbl} 2 tablet, Univers -acetaminop 12-20 Oral, ity of hen (NORCO 02:15: 01:15 ONCE, 1 Patel as 5) 5-325 mg 00 :00 dose, Fri Med ical tablet 2 12/20/19 at [facility] h tablet 2114, ANEESH ciprofloxac 2019- No 500mg 500 mg, U nivers in HCl 12-20 Oral, ONCE ity of (CIPRO) 01:00: 00:07 NOW, 1 [place] tablet 500 00 :00 dose, Fri Medi la nena mg 12/20/19 at Branch 2000, ANEESH
Re ason for Anti-Infec tive: Empiric Therapy for Suspected Infection< br>Empiric Therapy Site: Skin / Soft tissue
Duration of therapy: 72 hours lidocaine-p 2019- No 2.5g Topical, U nivers rilocaine 12-20 ONCE, 1 ity of (EMLA) 01:00: 00:08 dose, Fri [place] 2.5-2.5 % 00 :00 12/20/19 at Medi la nena cream 2.5 g 1999, ANEESH Br anch acetaminoph 2019-0 Yes [id number] 1{tbl} Take 1 Univers en-codeine 5-22 9107 tablet by ity of (TYLENOL-CO 00:00: mouth [place] DEINE #4) 00 every 6 Medical 300-60 mg (six) Branch tablet hours as needed for Pain. ciprofloxac 2019-0 Yes [id number] 500mg Take 1 Univers in HCl 500 12-19 9107 tablet by ity of mg tablet 00:00: mouth 2 [place] 00 (two) Medical times Branch daily. acetaminoph 2020-0 Yes [id number] 1{tbl} Take 1 Univers en-codeine 5-22 9107 tablet by ity of (TYLENOL-CO 00:00: mouth [place] DEINE #4) 00 every 6 Medical 300-60 mg (six) Branch tablet hours as needed for Pain. ciprofloxac 2019-0 Yes [id number] 500mg Take 1 Univers in HCl 500 5-22 9107 tablet by ity of mg tablet 00:00: mouth 2 [place] 00 (two) Medical times Branch daily. acetaminoph 2020-0 Yes [id number] 1{tbl} Take 1 Univers en-codeine 5-22 9107 tablet by ity of (TYLENOL-CO 00:00: mouth [place] DEINE #4) 00 every 6 Medical 300-60 mg (six) Branch tablet hours as needed for Pain. ciprofloxac 2020-0 Yes [id number] 500mg Take 1 Univers in HCl 500 5- 9107 tablet by ity of mg tablet 00:00: mouth 2 [place] 00 (two) Medical times Branch daily. acetaminoph 2020-0 Yes [id number] 1{tbl} Take 1 Univers en-codeine 5-22 9107 tablet by ity of (TYLENOL-CO 00:00: mouth [place] DEINE #4) 00 every 6 Medical 300-60 mg (six) Branch tablet hours as needed for Pain. ciprofloxac 2020-0 Yes [id number] 500mg Take 1 Univers in HCl 500 - 9107 tablet by ity of mg tablet 00:00: mouth 2 [place] 00 (two) Medical times Branch daily. ibuprofen 2020-0 2020- No [id number] 800mg Take 1 Univers 800 mg 12-19 05-29 9107 tablet by ity of tablet 00:00: 04:59 mouth 3 [place] 00 :00 (three) Medical times Branch daily with meals for 6 days. traMADOL 2019-0 Yes [id number] 50mg Take 1 Univers (ULTRAM) 50 2- [id number] tablet by i ty of mg tablet 00:00: mouth [place] 00 every 6 Medical (six) Branch hours as needed for Pain (scale 4-6). traMADOL 2019-0 Yes [id number] 50mg Take 1 Univers (ULTRAM) 50 2- [id number] tablet by i ty of mg tablet 00:00: mouth [place] 00 every 6 Medical (six) Branch hours as needed for Pain (scale 4-6). traMADOL 2019-0 Yes [id number] 50mg Take 1 Univers (ULTRAM) 50 2- [id number] tablet by i ty of mg tablet 00:00: mouth [place] 00 every 6 Medical (six) Branch hours as needed for Pain (scale 4-6). traMADOL Yes [id number] 50mg Take 1 Univers (ULTRAM) 50 2 [id number] tablet by i ty of mg tablet 00:00: mouth [place] 00 every 6 Medical (six) Branch hours as needed for Pain (scale 4-6). Wellbutrin Wellbutrin Yes [place] as Common SR SR 04-09 directed Spirit 00:00: - [facility] Cefdinir Cefdinir 2017-0 2018- No [place] as C ommon 04-09 directed Spirit 00:00: 00:00 - [facility] 00 :00 [facility] Lexapro Lexapro Yes [place] 1 tablet Common 03-27 Spirit 00:00: - [facility] PredniSONE PredniSONE Yes [place] 2 tablets Common 03-27 dailyx 5 Spirit 00:00: days then - [address] daily x 5 [facility] Kenalog Kenalog No 40mg Common (Triamcinol (Triamcinol - S pirit one) one) 00:00: - [facility] Kenalog Kenalog No 40mg Common (Triamcinol (Triamcinol - S pirit one) one) 00:00: - [facility] Dexamethaso Dexamethaso No 10mg Common ne ne - Spirit 00:00: - [facility] Trazodone Trazodone Yes [place] 1 tablet Common HCl HCl 5-22 at bedtime Spirit 00:00: as needed - [facility] acetaminoph Yes 1{tbl} Take 1 Un preethi en-codeine 8-20 tablet by ity of (TYLENOL-CO 00:00: mouth [place] DEINE #3) 00 every 6 Medical 300-30 mg (six) Branch tablet hours as needed for Pain (scale 4-6) (for cough). acetaminoph Yes 1{tbl} Take 1 Un preethi en-codeine 8-20 tablet by ity of (TYLENOL-CO 00:00: mouth [place] DEINE #3) 00 every 6 Medical 300-30 mg (six) Branch tablet hours as needed for Pain (scale 4-6) (for cough). acetaminoph 2017- Yes 1{tbl} Take 1 Un preethi en-codeine 8-20 tablet by ity of (TYLENOL-CO 00:00: mouth [place] DEINE #3) 00 every 6 Medical 300-30 mg (six) Branch tablet hours as needed for Pain (scale 4-6) (for cough). acetaminoph Yes 1{tbl} Take 1 Un preethi en-codeine 8-20 tablet by ity of (TYLENOL-CO 00:00: mouth [place] DEINE #3) 00 every 6 Medical 300-30 mg (six) Branch tablet hours as needed for Pain (scale 4-6) (for cough). citalopram citalopram No citalopram [place] 20 mg 20 mg 20 mg da tablet TAKE tablet TAKE tablet Medical 1 TABLET BY 1 TABLET BY TAKE 1 Group MOUTH EVERY MOUTH EVERY TABLET BY DAY. DAY. MOUTH EVERY DAY. Sprintec Sprintec No 1 Q1D Sprintec [place] (28) 0.25 (28) 0.25 (28) 0.25 da mg-35 mcg mg-35 mcg mg-35 mcg Medical tablet Take tablet Take tablet Group 1 tablet 1 tablet Take 1 every day every day tablet by oral by oral every day route. route. by oral route. Montelukast Montelukast Yes [place] 1 tablet Common Sodium Sodium in the Spirit evening [facility] Yes [place] not Common defined [facility] Cetirizine Cetirizine Yes [place] 1 tablet Common HCl HCl [facility] Estarylla Estarylla Yes [place] not Co mmon defined [facility] Flonase Flonase Yes [place] 2 spray in Common each Spirit nostril [facility] Benadryl Benadryl Yes [place] 1 tablet Common Allergy Allergy as needed Spir [facility] No [facility] Benadryl Benadryl No 1{table TID Benadryl Allergy 25 Allergy 25 t_as_ne Allergy 25 MG MG eded} MG Immunizations Ordered Immunization Filled Immunization Date Status Commen ts Source Name Name Lali - Lali - 2021-06-30 Completed Common Spiri t multidose vial multidose vial 08:45:00 [facility] Vital Signs Vital Name Observation Time Observation Value Comments Source BP Diastolic 2022-02-07 00:00:00 83 mm[facility]Hg] [facility] Height 2022-02-07 00:00:00 63 [in_i] [facility] BMI (Body Mass 2022-02-07 00:00:00 47.9 kg/m2 [facility] Medical Index) Group BP Systolic 2022-02-07 00:00:00 123 mm[Hg] [facility] Body Weight 2022-02-07 00:00:00 270.5 [lb_av] [facility] height 2021-10-06 09:00:00 64 [in_i] [facility] weight 2021-10-06 09:00:00 268.6 [lb_av] [facility] temperature 2021-10-06 09:00:00 98.1 [degF] [facility] bmi 2021-10-06 09:00:00 46.1 kg/m2 [facility] oximetry 2021-10-06 09:00:00 98 % [facility] respiratory rate 2021-10-06 09:00:00 18 /min Comm on [facility] blood pressure 2021-10-06 09:00:00 122 mm[Hg] Common [facility] - systolic [facility] blood pressure 2021-10-06 09:00:00 74 mm[Hg] Common [facility] - diastolic [facility] Systolic blood 2019-12-20 23:38:00 137 mm[Hg] Univer sity of [facility] Diastolic blood 2019-12-20 23:38:00 91 mm[Hg] Unive rsity of [facility] Heart rate 2019-12-20 23:38:00 93 /min [facility] [place] [facility] Body temperature 2019-12-20 23:38:00 37.22 [facility] Respiratory rate 2019-12-20 23:38:00 18 /min [facility] Body height 2019-12-20 23:38:00 160 cm [facility] Body weight 2019-12-20 23:38:00 123.378 kg [facility] BMI 2019-12-20 23:38:00 48.18 kg/m2 [facility] Oxygen saturation in 2019-12-20 23:38:00 100 /min [facility] Arterial blood by [facility] Pulse oximetry Branch BP Diastolic 2019-05-02 00:00:00 82 mm[Hg] [facility] Height 2019-05-02 00:00:00 63 [in_i] [facility] BMI (Body Mass 2019-05-02 00:00:00 47.9 kg/m2 [facility] Medical Index) Group BP Systolic 2019-05-02 00:00:00 132 mm[Hg] [facility] Body Weight 2019-05-02 00:00:00 270.6 [lb_av] [facility] BP Diastolic 2018-08-21 00:00:00 92 mm[Hg] [facility] Height 2018-08-21 00:00:00 63 [in_i] [facility] BMI (Body Mass 2018-08-21 00:00:00 45.2 kg/m2 [facility] Medical Index) Group BP Systolic 2018-08-21 00:00:00 117 mm[Hg] [facility] Body Weight 2018-08-21 00:00:00 255 [lb_av] [facility] Procedures Procedure Date / Time Performed Performing Clinician [facility] e CONSENT/REFUSAL FOR 2021-10-13 19:48:53 [facility]igned, [facility] Branch TREATMENT XR FOOT <3 VW RIGHT 2019-12-21 00:06:15 Jodie Burgos [facility] NOTICE OF PRIVACY 2019-12-20 23:29:33 [facility]igned, [facility] Branch CONSENT/REFUSAL FOR 2019-12-20 23:29:21 Doctor Unassigned, [facility] AND Name Medical Branch TREATMENT Section 2016-03-16 00:00:00 Karlie Franco Heart Surgery 2014-09-24 00:00:00 Karlie Franco Plan of Care Planned Activity Planned Date Details Comments Source Diagnostic Test 2022-02-07 pap, LB + HR HPV [place] [facility] Pending 00:00:00 [code = pap, LB + HR Group HPV] Diagnostic Test 2022-02-07 CT + NG DNA, PCR, [place] [facility] Pending 00:00:00 cervical [code = CT Group + NG DNA, PCR, cervical] Diagnostic Test 2022-02-07 urinalysis, dipstick [place] [facility] Medical Pending 00:00:00 [code = urinalysis, Group dipstick] Diagnostic Test 2022-02-07 wet mount, vaginal [place] harp [facility] Medical Pending 00:00:00 [code = wet mount, Group vaginal] Diagnostic Test 2022-02-07 CBC w/ auto diff [place] [facility] Pending 00:00:00 [code = CBC w/ auto Group diff] Diagnostic Test 2022-02-07 CMP, serum or plasma [place] [facility] Pending 00:00:00 [code = CMP, serum Group or plasma] Diagnostic Test 2022-02-07 TSH, serum or plasma [place] [facility] Pending 00:00:00 [code = TSH, serum Group or plasma] Diagnostic Test 2022-02-07 lipid panel, serum [place] [facility] Medical Pending 00:00:00 [code = lipid panel, Group serum] Diagnostic Test 2022-02-07 hemoglobin A1c, QN, [place] [facility] Pending 00:00:00 blood [code = Group hemoglobin A1c, QN, blood] Encounters Start End Encounter Admission Attending Care Care Encounter Source Date/Time Date/Time Type Type Clinicians Facility Department ID 2021-11-04 Outpatient CHIP [place] [facility] [id number] Common 14:43:[address] [facility] 2021-11-03 Outpatient [place] [facility] [id number] Common 14:05:[address] [facility] 2021-10-06 Outpatient CHIP [place] [facility] [id number] Common 08:50:[address] [facility] 2021-10-05 Out[place] [facility] [id number] Common 12:40:[address] [facility] 2021-10-04 Outpatient [place], [facility] [id number] Common 10:02:[address] [facility] 2021-09-21 Outpatient [place], [facility] [id number] Common 16:23:[address] [facility] 2022-02-08 2022-02-08 Outpatient ERWIN HORVATH [facility] [id number] [place] 12:42:00 12:42:00 SSA 0712 da [facility] Program 2022-02-07 2022-02-07 Alexis Maria_Papkurts [facility] [place] - [id number] [place] 00:00:00 00:00:00 Discovery Vishnu 0711 bentley MD: [address] [place] [address] Network Group [address] [address], [place] [address] , Ph. [phone] 2022-02-01 2022-02-01 Outpatient G_Pappas [facility] 2021 [place] 03:08:00 03:08:00 0705 [facility] Group 2021-10-14 2021-10-14 Letter MANUEL Blanc [id number] Univers 00:00:00 00:00:00 (Out) Gloria MANZO [id number] myrna [facility] [id number] Patel as [id number] [address] 2021-10-13 2021-10-13 Outpatient Daniela MICHELE III, [facility] [id number] Univers 15:00:00 15:30:56 LAITH mullins [facility] 2021-10-13 2021-10-13 Orders Doctor JACKSON [id number] Univers 00:00:00 00:00:00 Only UnassignedJOVANY [id number] ity of [place] [facility] [id number] Patel [id number] [facility] 009 Branch 2021-10-06 2021-10-06 OFFICE [facility] [id number] Co mmon 00:00:00 00:00:00 VISIT NEW Spir it PT LEVEL 4 - [facility] 2021-07-12 2021-07-12 [facility] [id number] Univers 16:01:00 23:59:00 Encounter bo, PRIMARY [id number] ity of [facility] [id number] [place] [id number] [place] [address] Branch 2020-06-17 2020-06-17 Outpatient G_Pappas [facility] 2019 [place] 02:40:00 02:40:00 1118 Medical Group 2019-12-20 2019-12-20 Emergency [facility] [id number] Univers 18:44:45 20:44:00 Jodie Faustin [id number] ity of [place] [id number] [facility] [id number] [facility] 084 Branch 2019-12-20 2019-12-20 Emergency X [facility] ERT [id number] Univers 18:44:45 20:44:00 JODIE mullins of [facility] [place] 2019-05-18 2019-05-18 Outpatient G_Pappas [facility] 2018 [place] 12:11:00 12:11:00 1019 Medical Group 2019-05-02 2019-05-02 Amalia Mcdonald [facility] [place] [place] - [id number] [id number] [place] 00:00:00 00:00:00 Discovery Florentino 1003 da WHNP: [address] [address], [place] [address] , Ph. [phone] 2018-08-21 2018-08-21 Alexis [facility] [place] - [id number] [place] 00:00:00 00:00:00 Discovery Deb Mares2 bentley MD: [address] [facility], [place] [facility], [place] [address] , Ph. [phone] 2018-04-09 2018-04-09 Outpatient [facility] [id number] Common 09:45:00 09:45:[address] Sp[address] [facility] 2018-03-27 2018-03-27 Outpatient [facility] [id number] Common 09:45:00 09:45:[address] Spir [address] [facility] 2017-12-24 2017-12-24 Outpatient [facility] [id number] Common 16:57:00 16:57:00 t Urgent [facility] S pirit [facility] 2017-12-23 2017-12-23 Outpatient [facility] [id number] Common 12:30:00 12:30:00 t Urgent Urgent Care S pirit Care [facility] 2017-12-19 2017-12-19 Outpatient [facility] [id number] Common 09:00:00 09:00:[address] [employer] [address] [facility] Results Test Description Test Time Test Comments Results Result Comments Source Microscopic observation [Identifier] in Vaginal fluid by Wet 2022-02-07 14:15:03 preparation Test Item Value Reference Range Interpretation Comme nts Clue Cells (test code = Clue Cells) negative WBCs (test code = WBCs) negative Trichomonads (test code = Trichomonads) negative Epithelial cells (test code = Epithelial cells) normal RBCs (test code = RBCs) negative [facility]dipstick) panel - [id number] 13:36:02 Test Item Value Reference Range Interpretation Comments Leukocytes (test code = Leukocytes) Trace Nitrite (test code = Nitrite) negative Urobilinogen (test code = .2 Urobilinogen) Protein (test code = Protein) Negative pH (test code = pH) 7.0 Blood (test code = Blood) Negative Specific Hazard (test code = 1.020 Specific [place]) Ketone (test code = Ketone) Negative Bilirubin (test code = Bilirubin) Negative Glucose (test code = Glucose) Negative Appearance (test code = Appearance) Clear Color (test code = Color) [facility] macro (dipstick) panel - [id number] 09:14:11 Test Item Value Reference Range Interpretation Comments Leukocytes (test code = Leukocytes) Trace Nitrite (test code = Nitrite) negative Urobilinogen (test code = .2 Urobilinogen) Protein (test code = Protein) Negative pH (test code = pH) 6.0 Blood (test code = Blood) Negative Specific [place]ard (test code = 1.025 Specific [place]) Ketone (test code = Ketone) Negative Bilirubin (test code = Bilirubin) Negative Glucose (test code = Glucose) Negative Appearance (test code = Appearance) Clear Color (test code = Color) [facility]
[2022-09-12] MEDS ORDERED: EPINEPHRINE/PF 1 MG/ML AMP ONE (14:25)
[2022-09-12 16:02] LABS: Absolute Lymphocytes (CBC) 1.5 K/uL (0.7-4.9); Hematocrit 36.2 % (36.0-45.0); Lymphocytes % 13.9 % (15.3-44.8); MCV 87.2 fL (80-100); RBC Red Blood Cell Count 4.15 M/uL (3.86-4.86)
[2022-09-12] MEDS ORDERED: NA CHLORIDE 0.9% 500 ML ONE (16:03)
[2022-09-12] MEDS ORDERED: METHYLPREDNISOLONE 40 MG INJ ONE (16:03)
[2022-09-12] MEDS ORDERED: FAMOTIDINE 20 MG/2 ML VIAL IV ONE (16:03)
[2022-09-12] MEDS ORDERED: DIPHENHYDRAMINE 50 MG/ML VIAL ONE (16:03)
[2022-09-12 16:19] LABS: Potassium 3.1 mmol/L (3.5-5.1)
--- NOTE | 2022-09-12 16:40 | EDPHYS ---
Physician Documentation [facility] Name: Marya Sanchez Age: 32 yrs Sex: Female : 1990 Arrival Date: 09/12/2022 Time: 13:31 Bed 19 Private MD: ED Physician Ulysses Hughes HPI: 09/12 15:13 This 32 yrs old Black Female presents to ER via Ambulatory with complaints of Hives, bs3 Itching. 15:13 She notes a history of rheumatoid arthritis and hives in the past which have bs3 intermittently responded to steroids and Benadryl presents with a diffuse itchy rash for the past 4 days she is taking Benadryl without relief she denies any fevers or chills she notes that she feels like she is going to pass out she denies any known exposure she notes that she saw 1 training and development director once but they did not know what was causing the symptoms she has never seen a power barker operator. She notes causing bruising on her right leg because of the itching. 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 - Social history:: Smoking status: Patient reports the use of cigarette tobacco products, smokes one-half pack cigarettes per day. ROS: 15:13 Constitutional: Negative for fever, chills bs3 15:13 All other systems are negative. Exam: 15:13 Constitutional: This is a well developed, well nourished patient who is awake, alert, bs3 and in no acute distress. Head/Face: Normocephalic, atraumatic. Eyes: Pupils equal round and reactive to light, extra-ocular motions intact. Lids and lashes normal. ENT: mmm, no posterior phyarngeal erythema Neck: Trachea midline, no thyromegaly, no neck stiffness Chest/axilla: Normal chest wall appearance and motion. Nontender with no deformity. No lesions are appreciated. Cardiovascular: Tachycardic no murmur Respiratory: Lungs have equal breath sounds bilaterally, clear to auscultation, no respiratory distress Abdomen/GI: Soft, non-tender, no rebound or guarding 15:13 Sinus tachycardia at [address] elevations or depressions QTc 476 as interpreted by myself 15:13 Skin: Diffuse urticarial rash throughout her body it is red blanching consistent with bs3 hives Vital Signs: 13:45 BP 113 / 56; Pulse 128; Resp 18; Temp 98.8; Pulse Ox 100% ; Weight 122.47 kg; Height 5 jh5 ft. 4 in. (162.56 cm); Pain 5/10; 15:39 BP 121 / 77; Pulse 102; Pulse Ox 98% ; ap3 16:44 Pulse 101; Temp 98.2; Pulse Ox 99% on R/A; ap3 13:45 Body Mass Index 46.34 (122.47 kg, 162.56 cm) jh5 MDM: 13:57 Patient medically screened. bs3 15:13 Differential diagnosis: anaphylaxis, Mastocystosis non IgE mediated drug reaction bs3 urticaria. 16:01 Data reviewed: vital signs, nurses notes. ED course: pt without sig change with epi, bs3 but hr improved without intervention. 16:38 ED course: labs notable for slight hypokalemia, will repleat, hr improved, itching bs3 slightly improved, no life threatening etiology of her urticaria found, advised outpatient f/u and strict return prec pt denies drugs, doubt withdrawl.. 09/12 14:03 Order name: CBC with Diff bs3 09/12 14:03 Order name: BMP bs3 09/12 16:04 Order name: CBC with Automated Diff; Complete Time: 16:34 EDMS 09/12 16:19 Order name: Basic Metabolic Panel; Complete Time: 16:34 EDMS 09/12 14:03 Order name: EKG - Nurse/Tech; Complete Time: 14:37 bs3 Administered Medications: 14:45 Drug: EPINEPHrine 1mg/mL 1:1,000 0.5 mg Route: IM; Site: right deltoid; ap3 15:40 Follow up: Response: No adverse reaction ap3 16:05 Drug: NS 0.9% 500 ml Route: IV; Rate: 1000 bolus; Site: right antecubital; ap3 17:05 Follow up: IV Status: Completed infusion; IV Intake: 500ml ap3 16:06 Drug: Pepcid (famotidine) 20 mg Route: IVP; Site: right antecubital; ap3 16:43 Follow up: Response: No adverse reaction ap3 16:06 Drug: Benadryl (diphenhydrAMINE) 25 mg Route: IVP; Site: right antecubital; ap3 16:43 Follow up: Response: No adverse reaction ap3 16:06 Drug: MethylPrednisoLONE 40 mg Route: IVP; Site: right antecubital; ap3 16:43 Follow up: Response: No adverse reaction ap3 16:43 Drug: Potassium Chloride Liquid 40 mEq Route: PO; ap3 17:05 Follow up: Response: No adverse reaction ap3 16:43 Drug: Potassium Chloride Liquid 40 mEq Route: PO; ap3 17:04 Follow up: Response: No adverse reaction ap3 Disposition Summary: 09/12/22 16:39 Discharge Ordered Location: Home bs3 Problem: an acute exacerbation bs3 Symptoms: have improved bs3 Condition: Fair bs3 Diagnosis - Idiopathic urticaria bs3 Followup: bs3 - With: Private Physician - When: 1 - 2 days - Reason: Re-evaluation by your physician Discharge Instructions: - Discharge Summary Sheet bs3 - Hives, [id number] bs3 Forms: - Work release form bs3 - Medication Reconciliation Form bs3 - Thank You Letter bs3 - Antibiotic Education bs3 - Prescription Opioid Use bs3 Signatures: Dispatcher [employer] Paola Gonzalez RN RN ap3 Isabella Swann RN RN jh5 Ulysses Hughes MD MD bs3 Corrections: (The following items were deleted from the chart) 16:43 14:03 Urine Test ordered. bs3 ap3
--- NOTE | 2022-09-12 16:40 | ER ---
Nurse's Notes [facility] Name: Marya Sanchez Age: 32 yrs Sex: Female : 1990 Arrival Date: 09/12/2022 Time: 13:31 Bed 19 Private MD: Diagnosis: Idiopathic urticaria Presentation: 09/12 13:45 Chief complaint: Patient states: I have chronic hives i guess, but this been ging on 5 for 3 days. I feel like i am about to pass out. Coronavirus screen: Vaccine status: Patient reports receiving the 2nd dose of the covid vaccine. Client denies travel out of the [place] in the last 14 days. Ebola Screen: Patient negative for fever greater than or equal to 101.5 degrees Fahrenheit, and additional compatible Ebola Virus Disease symptoms Patient denies exposure to infectious person. Patient denies travel to an Ebola-affected area in the 21 days before illness onset. Anaphylaxis evaluation, no signs or symptoms of anaphylaxis were noted. Initial Sepsis Screen: Does the patient meet any 2 criteria? No. Patient's initial sepsis screen is negative. Does the patient have a suspected source of infection? No. Patient's initial sepsis screen is negative. Risk Assessment: Do you want to hurt yourself or someone else? Patient reports no desire to harm self or others. Onset of symptoms was September 08, 2022. 13:45 Method Of Arrival: Ambulatory [facility] 13:45 Acuity: JUAN 3 [facility] 15:39 Onset: The symptoms/episode began/occurred gradually, 3 day(s) ago. ap3 Triage Assessment: 13:48 General: Appears uncomfortable, obese, Behavior is cooperative, appropriate for age, 5 agitated, anxious. 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 - Social history:: Smoking status: Patient reports the use of cigarette tobacco products, smokes one-half pack cigarettes per day. Screenin:38 [facility] ED Fall Risk Assessment (Adult) History of falling in the last 3 months, ap3 including since admission No falls in past 3 months (0 pts). Abuse screen: Denies threats or abuse. Nutritional screening: No deficits noted. Tuberculosis screening: No symptoms or risk factors identified. Assessment: 14:53 Reassessment: Patient and/or family updated on plan of care and expected duration. Pain ap3 level reassessed. Patient is alert, oriented x 3, equal unlabored respirations, skin warm/dry/pink. 15:38 Pain: Complains of pain in generalized with hives. Neuro: Level of Consciousness is ap3 awake, alert, obeys commands, Oriented to person, place, time, situation. Cardiovascular: Patient's skin is warm and dry. Respiratory: Airway is patent Respiratory effort is even, unlabored. Derm: Rash noted that is itchy, red, on abdomen, right arm, left arm, right leg and left leg. 17:04 Respiratory: Breath sounds are clear. ap3 Vital Signs: 13:45 BP 113 / 56; Pulse 128; Resp 18; Temp 98.8; Pulse Ox 100% ; Weight 122.47 kg; Height 5 jh5 ft. 4 in. (162.56 cm); Pain 5/10; 15:39 BP 121 / 77; Pulse 102; Pulse Ox 98% ; ap3 16:44 Pulse 101; Temp 98.2; Pulse Ox 99% on R/A; ap3 13:45 Body Mass Index 46.34 (122.47 kg, 162.56 cm) 5 ED Course: 13:31 Patient arrived in ED. as 13:32 Ulysses Hughes MD is Attending Physician. bs3 13:48 Triage completed. 5 13:48 Arm band placed on right wrist. 5 13:51 Paola Cheng, YOBANI is Primary Nurse. ap3 15:39 Patient has correct armband on for positive identification. Bed in low position. Call ap3 light in reach. Side rails up X 1. Adult w/ patient. electrical instrumentation technician on. Pulse ox on. NIBP on. Door closed. Noise minimized. Warm blanket given. 15:47 Inserted saline lock: 20 gauge in left antecubital area, using aseptic technique. Blood sg5 collected. 17:04 No provider procedures requiring assistance completed. IV discontinued, intact, ap3 bleeding controlled, No redness/swelling at site. Pressure dressing applied. Administered Medications: 14:45 Drug: EPINEPHrine 1mg/mL 1:1,000 0.5 mg Route: IM; Site: right deltoid; ap3 15:40 Follow up: Response: No adverse reaction ap3 16:05 Drug: NS 0.9% 500 ml Route: IV; Rate: 1000 bolus; Site: right antecubital; ap3 17:05 Follow up: IV Status: Completed infusion; IV Intake: 500ml ap3 16:06 Drug: Pepcid (famotidine) 20 mg Route: IVP; Site: right antecubital; ap3 16:43 Follow up: Response: No adverse reaction ap3 16:06 Drug: Benadryl (diphenhydrAMINE) 25 mg Route: IVP; Site: right antecubital; ap3 16:43 Follow up: Response: No adverse reaction ap3 16:06 Drug: MethylPrednisoLONE 40 mg Route: IVP; Site: right antecubital; ap3 16:43 Follow up: Response: No adverse reaction ap3 16:43 Drug: Potassium Chloride Liquid 40 mEq Route: PO; ap3 17:05 Follow up: Response: No adverse reaction ap3 16:43 Drug: Potassium Chloride Liquid 40 mEq Route: PO; ap3 17:04 Follow up: Response: No adverse reaction ap3 Medication: 15:39 VIS not applicable for this client. ap3 Intake: 17:05 IV: 500ml; Total: 500ml. ap3 Outcome: 16:39 Discharge ordered by . bs3 17:04 Discharged to home ambulatory. ap3 17:04 Condition: good 17:04 Discharge instructions given to patient, Instructed on discharge instructions, follow up and referral plans. Demonstrated understanding of instructions, follow-up care. 17:07 Patient left the ED. ap3 Signatures: Arabella Johnson Amanda RN RN ap3 Isabella Swann RN RN jh5 Ulysses Hughes MD MD bs3 Eveline Lancaster RN RN sg5
[2022-09-12] MEDS ORDERED: POTASSIUM CL SA 10 MEQ TAB PO ONE (16:42)
[2022-09-12 17:44] VITALS: BP 121/77
[2022-09-12 17:50] VITALS: TEMP 98.2; O2SAT 99
--- NOTE | 2022-09-13 17:13 | EKG ---
Test Date: 2022-09-12 Test Time: 14:28:07 Director Embalmer: ALP MEASUREMENT RESULTS: Intervals: Rate: 125 OR: 122 QRSD: 78 QT: 330 QTc: 476 Chuckey: P: 76 OR: 122 QRS: 80 T: 59 INTERPRETIVE STATEMENTS: Sinus tachycardia Otherwise normal ECG Compared to ECG 09/03/2019 09:03:16 No significant changes Electronically Signed On 09-13-22 17:09:43 DATA MANAGEMENT SPECIALIST by Toño Pace
== END 2022-09-12 17:07 | disposition home or self-care (01) ==
LOC: ER 13:30
DX: L50.1 Idiopathic urticaria (principal); I10 Essential (primary) hypertension; F17.210 Nicotine dependence, cigarettes, uncomplicated; Z91.013 Allergy to seafood
CPT/HCPCS: 96361; 93005; 85025; 80048; 36415; 96375; 96372; 96374; 99284; J0171; J1200; J7040; J2920